=== PATIENT | male | born 1970 | race Caucasian/White ===

== ENCOUNTER 2019-02-15 11:28 | Outpatient (CLI) | payer MEDICAID, SELFPAY ==
[2019-02-15 12:24] LABS: HCT 43.4 % (40.0-50.0); HGB 14.1 g/dL (13.5-17.5); Mean Corp. HGB Concentration 32.5 g/dL (32.0-36.0); Mean Corpuscular Hemoglobin 28.1 pg (27.0-33.0); Mean Corpuscular Volume 86.5 fL (80-95); Platelet Count 288 x1000/uL (130-400); RBC 5.02 m/cumm (4.50-6.00); RBC Distribution Width 14.7 % (11.8-14.1); White Blood Cell Count 9.55 k/cumm (4.4-10.8)
[2019-02-15 13:47] LABS: ALT 54 U/L (12-78); AST 26 U/L (15-37); Albumin 3.4 g/dL (3.4-5.0); Alkaline Phosphatase 113 U/L (46-116); Anion Gap 10.6 mmol/L (3-11); BUN 15 mg/dL (7-18); Bilirubin, Total 0.6 mg/dL (0.2-1.0); CO2 27.4 mmol/L (21.0-32.0); CREATININE 1.12 mg/dL (0.70-1.30); Calcium 8.7 mg/dL (8.5-10.1); Calculated LDL 115 mg/dL; Chloride 107 mmol/L (98-107); Cholesterol 195 mg/dL (50-200); Glucose 108 mg/dL (70-100); HDL Cholesterol 47 mg/dL (40-60); Potassium 4.5 mmol/L (3.5-5.1); Sodium 145 mmol/L (136-145); Triglyceride 165 mg/dL (30-150)
== END 2019-02-15 11:48 ==
PROVIDERS: PCP Family Medicine; Visit Provider Family Medicine
DX: I10 Essential (primary) hypertension (principal)
CPT/HCPCS: 36415; 80053; 80061; 83721; 85027

== ENCOUNTER 2022-07-11 11:16 | Outpatient (CLI) | payer MEDICAID, SELFPAY ==
[2022-07-11 11:31] LABS: Anion Gap 8.2 mmol/L (3-11); BUN 19 mg/dL (7-18); CO2 25.8 mmol/L (21.0-32.0); Calcium 8.9 mg/dL (8.5-10.1); Calculated LDL 126 mg/dL (<100); Chloride 101 mmol/L (98-107); Cholesterol 207 mg/dL (<200); Estimated GFR 91.12 (mL/min/1.73m2); Glucose 132 mg/dL (74-106); HDL Cholesterol 47 mg/dL (40-60); Potassium 4.3 mmol/L (3.5-5.1); Sodium 135 mmol/L (136-145); Triglyceride 174 mg/dL (<150)
[2022-07-11 18:45] LABS: PSA, Screening 1.2 ng/mL (<=3.5)
== END 2022-07-11 11:17 | disposition home or self-care (01) ==
LOC: LBO 11:20
PROVIDERS: PCP Family Medicine; Visit Provider Family Medicine
DX: E87.1 Hypo-osmolality and hyponatremia (principal); Z12.5 Encounter for screening for malignant neoplasm of prostate; E78.5 Hyperlipidemia, unspecified
CPT/HCPCS: 36415; 80048; 80061; 84153

== ENCOUNTER 2023-08-17 08:54 | Emergency (ER) | payer MEDICAID, SELFPAY ==
[2023-08-17 09:01] VITALS: BP 178/70; PULSE 89; RESP 18; TEMP 37; O2SAT 95
[2023-08-17 09:10] VITALS: RESP 20
--- NOTE | 2023-08-17 09:19 | ED.GENADUL_ITS ---
Discharge Plan Disposition Patient Disposition: Home Discharge Details Clinical Impression: URI (upper respiratory infection) Primary Care Provider: Armando Altman ED Provider: Mxa Quick Home Meds and New Rx's Prescriptions: Continued multivitamin combination no.56 Tablet,Chewable 1 tab PO DAILY lisinopril 30 mg tablet 30 mg PO DAILY Qty: 90 2RF chlorthalidone 25 mg tablet 25 mg PO DAILY Qty: 90 3RF Patient Comments: Probably, but unsure. venlafaxine 150 mg capsule,extended release 24hr 150 mg PO DAILY Qty: 90 3RF Discharge Instructions Additional Instructions: You were seen in the emergency department for your cough. As we discussed you will receive a call back if your viral swab returns positive. Please follow-up with your primary care provider this week. Please return to the emergency department, as we discussed, if you develop worsening shortness of breath difficulty breathing cannot eat or drink or have any other concerns. Discharge Data Discharge Date/Time-TO BE ENTERED AT DEPARTURE: 08/17/23 09:50 HPI General Date/Time Provider Initiated Documentation: 08/17/23 09:01 . HPI Narrative: MDM This is an overall very well-appearing normothermic and not tachycardic 52-year-old male with obesity recent cough and history and physical most consist ent with viral URI. Patient does have an elevated blood pressure and history of hypertension has not yet taken his home medications. He has good range of motion in his neck so not concern for retropharyngeal abscess. Uvula is midline so doubt REAL ESTATE ANALYST. No fevers nor abnormal lung sounds nor hypoxia so doubt pneumonia. No chest pain to suggest ACS. No significant shortness of breath nor lower extremity edema to suggest acute CHF. I considered PE however the patient denies shortness of breath and chest pains so I did not send a D-dimer. No pain out of proportion to suggest necrotizing soft tissue infection. Given no fevers and low Centor score I did not swab for strep pharyngitis. Viral will send PCR for COVID RSV and influenza and call if these are positive. Patient and I discussed follow-up with his primary care provider later this week. We also discussed return to the emergency department if he did not urinate at least once every 8 hours while awake if he developed fevers syncope or difficulty breathing. He understood his return indications and was discharged with an empiric trial of expectant outpatient management. Patient and I discussed that he may have a viral URI or bronchitis. I advised that if his symptoms worsens or does not improve that he should return to the emergency department for reassessment if he could not get into his primary care provider later this week. 3 PM Blood pressure improved without intervention in the emergency department. Respiratory viral swab negative for COVID, influenza, and RSV. Chronic conditions affecting the care of the patient: Hypertension elevated BMI History obtained from an outside historian: N/A External record review: No [facility] EMR records Medications: N/A Social determinants of health affecting disposition: N/A Management discussed with: N/A Treatment/interventions considered: Chest x-ray but deferred Response to therapies provided: N/A HPI This is a 52-year-old male with a history of hypertension and elevated BMI arrived to the emergency department via private vehicle in the setting of cough for the past 3 days. Patient reports that he is intermittently had a productive cough which he says is thick and yellow. He generally feels unwell. He is occasionally had some shortness of breath secondary to coughing. He works in maintenance. He swabbed himself at home and was negative for COVID. He has not yet taken his home antihypertensive medications. He denies routine tobacco, ethanol, and illicits. He has no history of asthma. He has not been nauseous or vomiting. He has been urinating per usual. No recent syncope. No dysuria nor frequency. No abdominal pain. Intermittent sore throat. Exam General: Well-appearing in no acute distress speaking in complete sentences. Head: Normocephalic, atraumatic. Eye: Extraocular eye movements intact. No conjunctival injection. No scleral icterus. Ear, nose, mouth, throat: Grossly normal inspection. Normal voice, handling secretions normally. No significant posterior oropharynx erythema. Uvula midline. No tonsillar exudates. Neck: Trachea midline. Cardiovascular: Well-perfused distal extremities. Regular rate and rhythm Respiratory: Nonlabored respiration. Clear lungs bilaterally Gastrointestinal: Nondistended abdomen. Musculoskeletal: No significant lower extremity pitting edema. Moving all 4 extremities spontaneously. Skin: Normal for age and race, grossly normal temperature and turgor. No acute rash. Neurologic: Alert and appropriate, no apparent acute deficits. Psychiatric: Mood and manner are appropriate. Grooming and personal hygiene are appropriate. Related Data Home Medications Medication Instructions Recorded Confirmed multivitamin combination no.56 1 tab PO DAILY 06/05/21 08/17/23 venlafaxine 150 mg 150 mg PO DAILY #90 caps 06/16/22 08/17/23 capsule,extended release 24 hr chlorthalidone 25 mg tablet 25 mg PO DAILY #90 tabs 02/02/23 08/17/23 lisinopril 30 mg tablet 30 mg PO DAILY #90 tabs 02/02/23 08/17/23 Previous Rx's Medication Instructions Recorded venlafaxine 150 mg 150 mg PO DAILY #90 caps 06/16/22 capsule,extended release 24 hr chlorthalidone 25 mg tablet 25 mg PO DAILY #90 tabs 02/02/23 lisinopril 30 mg tablet 30 mg PO DAILY #90 tabs 02/02/23 Allergies Allergy/AdvReac Type Severity Reaction Status Date / Time ciprofloxacin [From Cipro] Allergy Severe HIVES, GI Verified 02/02/23 15:51 UPSET General Stated Complaint: GenMedical ROBBIN: 4 PFSH All Active Problems (Updated 08/17/23 @ 09:36 by Max Quick MD) URI (upper respiratory infection) (Acute) URI (upper respiratory infection) (Acute) Screening for colon cancer (Acute) Depressive disorder (Acute 03/04/11) History of umbilical hernia repair (Acute) Hyperlipidemia (Acute) Pulmonary hypertension, unspecified (Acute) Urination frequency (Acute) and urgency; normal IVP; normal PSA Morbid obesity (Acute) Umbilical hernia (Acute 07/16/03) repair-Gladys Morbid obesity with BMI of 45.0-49.9, adult (Chronic) GERD (gastroesophageal reflux disease) (Chronic) Anxiety (Chronic) Chest pain (Acute 07/17/14) Hyperlipidemia (Chronic) Bilateral lower extremity edema (Chronic) H/O surgical procedure (Chronic) a. umbilical hernia repair 2003 Depression (Chronic) Polyuria (Chronic) Family history of coronary artery disease (Chronic) HTN (hypertension) (Chronic) Family History (Updated 06/05/21 @ 15:28 by Xiomy Solomon) Mother Depression Diabetes High cholesterol Father Alcohol use disorder Cancer Heart disease Hypertension Sister No problems noted. Sister No problems noted. Son No problems noted. Daughter No problems noted. Social History (Updated 06/05/21 @ 15:26 by Xiomy Solomon) Smoking/Tobacco Use Status: Former Tobacco Use tobacco type: cigarettes and smokeless tobacco Quit Date: 08/17/06 Smokeless tobacco user: chewing tobacco Second Hand Exposure: Yes Smoking risk assessment performed?: Yes Alcohol Intake: never Drug use: Never Substance use type: does not use Caregiver/Support person: No Household members: spouse Housing: house Pets and animals: Yes Pets and animals: dog(s) and farm animals Sexually active: Yes Do you think of yourself as: straight/heterosexual Current gender identity: male What is your relationship status?: How often do you talk on the phone with friends or family?: three or more times per week How often do you get together with friends or relatives?: twice per week Do you belong to any clubs or organized social groups?: no Panel score (0-1 are the most socially isolated patients): 2 What type of physical activity do you participate in: walking Duration: 60-90 minutes/day Frequency: 3-4 times per week Nereida/Presybeterian: No preference Special nereida needs: No Seatbelt use: always Helmet use: No Drive intox or ride w/intox port cdl a driver: No Course Vital Signs Vital signs: Vital Signs Temperature 37.0 C 08/17/23 09:01 Pulse 89 08/17/23 09:01 Respiratory Rate 18 08/17/23 09:01 Blood Pressure 178/70 H 08/17/23 09:01 Pulse Oximetry 95 08/17/23 09:01 Temperature 37.0 C 08/17/23 09:01 Pulse 89 08/17/23 09:01 Respiratory Rate 20 08/17/23 09:10 Respiratory Effort Normal, Non-Labored 08/17/23 09:10 Respiratory Depth Normal 08/17/23 09:10 Respiratory Pattern Normal 08/17/23 09:10 Blood Pressure 178/70 H 08/17/23 09:01 Pulse Oximetry 95 08/17/23 09:01 Oxygen Delivery Method Room Air 08/17/23 09:01 Oxygen Flow Rate 0 08/17/23 09:01
[2023-08-17 09:50] VITALS: BP 138/83; PULSE 87; RESP 18; O2SAT 95
[2023-08-17 10:32] LABS: COVID-19 PCR Negative (Negative); Influenza A PCR Negative (Negative); Influenza B PCR Negative (Negative); RSV PCR Negative (Negative)
[2023-08-17 10:42] LABS: Source Nasopharynx
== END 2023-08-17 09:50 | disposition home or self-care (01) ==
PROVIDERS: Emergency Provider Emergency Medicine; PCP Family Medicine
DX: J06.9 Acute upper respiratory infection, unspecified (principal); I10 Essential (primary) hypertension; Z11.52 Encounter for screening for COVID-19; Z87.891 Personal history of nicotine dependence
CPT/HCPCS: 87635; 87637; 99283; 99282

== ENCOUNTER 2024-04-24 08:25 | Emergency (ER) | payer MEDICAID, SELFPAY ==
[2024-04-24] VITALS (33 sets, daily range): BP systolic 160–192; BP diastolic 68–92; PULSE 62–92; RESP 12–23; TEMP 36.4–36.8; O2SAT 93–97
--- NOTE | 2024-04-24 08:49 | W.ED.GENAD ---
Discharge Plan Disposition Patient Disposition: Transfer-Acute Inpatient Care Specific Acute Inpt Facility: [facility] Condition: Stable Discharge Details Chief Complaint: GenMedical Clinical Impression: Thyroid mass, Multiple pulmonary nodules Primary Care Provider: Armando Altman ED Provider: Raji Shea Home Meds and New Rx's Prescriptions: No Action multivitamin combination no.56 Tablet,Chewable 1 tab PO DAILY venlafaxine 150 mg capsule,extended release 24hr 150 mg PO DAILY Qty: 90 3RF chlorthalidone 25 mg tablet 25 mg PO DAILY Qty: 90 3RF Patient Comments: Probably, but unsure. lisinopril 30 mg tablet 30 mg PO DAILY Qty: 90 2RF Discharge Instructions Instructions: Multiple pulmonary nodules Additional Instructions: You are being transferred to [facility] to be evaluated by upholsterer limousine and hearse. You have been found to have a large thyroid mass. You have also been found to have multiple lung nodules. All of these conditions need to be urgently evaluated and followed up on for further treatment. HPI General Date/Time Provider Initiated Documentation: 04/24/24 08:26. HPI Narrative: 53-year-old male presents with growing painful mass to left side of neck over the last several days, denies fevers chills nausea vomiting abdominal pain or chest pain. Patient does endorse that the swelling in his neck is making it more difficult to swallow and breathe this morning. Denies history of tobacco use. Denies recent travel. Denies recent trauma. Denies recent dental infection or current dental symptoms Related Data Home Medications ?Medication ?Instructions ?Recorded ?Confirmed multivitamin combination no.56 1 tab PO DAILY 06/05/21 04/24/24 venlafaxine 150 mg 150 mg PO DAILY #90 caps 08/18/23 04/24/24 capsule,extended release 24 hr chlorthalidone 25 mg tablet 25 mg PO DAILY #90 tabs 02/08/24 04/24/24 lisinopril 30 mg tablet 30 mg PO DAILY #90 tabs 02/08/24 04/24/24 Previous Rx's ?Medication ?Instructions ?Recorded venlafaxine 150 mg 150 mg PO DAILY #90 caps 08/18/23 capsule,extended release 24 hr chlorthalidone 25 mg tablet 25 mg PO DAILY #90 tabs 02/08/24 lisinopril 30 mg tablet 30 mg PO DAILY #90 tabs 02/08/24 Allergies Allergy/AdvReac Type Severity Reaction Status Date / Time ciprofloxacin (From Cipro) Allergy Severe HIVES, GI Verified 04/24/24 09:02 UPSET General Stated Complaint: GenMedical ROBBIN: 3 Exam Narrative Exam Narrative: Mildly uncomfortable appearing Moist mucous membranes tolerate secretions normal voice no stridor Soft submental submandibular and sublingual space, large area of firm induration left lateral neck extending from angle of mandible to clavicle, no crepitus no fluctuance no purulence no erythema Lungs clear bilaterally no wheezes rales or rhonchi no tachypnea no retractions no cyanosis Normal heart sounds no murmurs rubs or gallops Moving all extremities without deficit Ambulatory without assistance Course Vital Signs Vital signs: Vital Signs Temperature 36.4 C 04/24/24 08:29 Pulse 92 H 04/24/24 08:29 Respiratory Rate 20 04/24/24 08:29 Blood Pressure 185/92 H 04/24/24 08:29 Pulse Oximetry 97 04/24/24 08:29 Temperature 36.4 C 04/24/24 08:29 Pulse 92 H 04/24/24 08:29 Respiratory Rate 20 04/24/24 08:29 Blood Pressure 185/92 H 04/24/24 08:29 Blood Pressure Position Sitting 04/24/24 08:29 Pulse Oximetry 97 04/24/24 08:29 Oxygen Delivery Method Room Air 04/24/24 08:29 Oxygen Flow Rate 0 04/24/24 08:29 Medical Decision Making 53-year-old male presents with progressive swelling and discomfort to left lateral neck over the last several days, afebrile nontoxic however does appear mildly uncomfortable, no respiratory distress no hypoxia no tachypnea patient is hemodynamically stable, no stridor, patient is tolerating secretions has a normal voice, large area of induration extending from angle of left mandible to level of clavicle involving left lateral neck no erythema no fluctuance no crepitus, trachea is midline patient's lungs are clear; concern for malignancy of neck versus deep space infection of neck no evidence of José Miguel's angina at this time given soft submental sublingual and submandibular space muscles consider septic thrombophlebitis versus lymphadenopathy lower suspicion for arterial aneurysm or dissection must also consider extension from thoracic pathology such as malignancy at apex of lung. No unilateral edema to suggest subclavian vascular involvement. Will obtain CT neck CT chest with contrast, will start empiric Unasyn dexamethasone Toradol, close reassessment disposition pending reassessment and results. Patient is protecting airway currently will continue to reassess and intervene as necessary. Patient is on lisinopril however this does not appear to be angioedema as the oropharyngeal mucosa are uninvolved 10: 33 evidence of left thyroid lobe mass as well as multiple pulmonary nodules concerning for metastatic disease. High clinical suspicion for malignancy. Lower suspicion for deep space infection of neck. Patient feeling symptomatically better after dexamethasone. Tongue secretions normal voice no stridor no respiratory distress. I have reached out to surgical oncology ENT at [facility] for discussion of possible transfer versus close follow-up, patient does have a follow-up appointment with his primary care on Thursday. 11: 59 per transfer center ENT consulting resident deferred the consult to endocrinology. I was able to speak with health sciences manager fellow with Dr. Carreon who agrees with my assessment that this patient needs consultation with a surgical service. Endocrinology is happy to follow-up with the patient as an outpatient as needed. I have expressed to the transfer center that I need to speak with a surgical service whether it be ENT or general surgery with regards to this patient given his acute upper airway symptomatology and potential for decompensation. Patient remains hemodynamically stable airway intact feeling better after dexamethasone 1: 25 was able to speak with ENT resident who consulted with her attending who would like patient transferred ED to ED for evaluation. Patient remains hemodynamically stable airway is intact normal voice tolerating secretions no stridor no respiratory distress no hypoxia no tachypnea. Patient amenable to transfer. Quality:SDOH Health Related Social Needs: No Data to Display PFSH All Active Problems (Updated 04/24/24 @ 13:27 by Raji Shea MD) Multiple pulmonary nodules (Acute) Thyroid mass (Acute) Bilateral otitis media (Acute) URI (upper respiratory infection) (Acute) Screening for colon cancer (Acute) Depressive disorder (Acute 03/04/11) History of umbilical hernia repair (Acute) Hyperlipidemia (Acute) Pulmonary hypertension, unspecified (Acute) Urination frequency (Acute) and urgency; normal IVP; normal PSA Morbid obesity (Acute) Umbilical hernia (Acute 07/16/03) repair-Gladys Morbid obesity with BMI of 45.0-49.9, adult (Chronic) GERD (gastroesophageal reflux disease) (Chronic) Anxiety (Chronic) Chest pain (Acute 07/17/14) Hyperlipidemia (Chronic) Bilateral lower extremity edema (Chronic) H/O surgical procedure (Chronic) a. umbilical hernia repair 2003 Depression (Chronic) Polyuria (Chronic) Family history of coronary artery disease (Chronic) HTN (hypertension) (Chronic) Family History (Updated 06/05/21 @ 15:28 by Xiomy Solomon) Mother Depression Diabetes High cholesterol Father Alcohol use disorder Cancer Heart disease Hypertension Sister No problems noted. Sister No problems noted. Son No problems noted. Daughter No problems noted. Social History (Updated 06/05/21 @ 15:26 by Xiomy Solomon) Smoking/Tobacco Use Status: Former Tobacco Use tobacco type: cigarettes and smokeless tobacco Quit Date: 08/17/06 Smokeless tobacco user: chewing tobacco Second Hand Exposure: Yes Smoking risk assessment performed?: Yes Alcohol Intake: never Drug use: Never Substance use type: does not use Caregiver/Support person: No Household members: spouse Housing: house Pets and animals: Yes Pets and animals: dog(s) and farm animals Sexually active: Yes Do you think of yourself as: straight/heterosexual Current gender identity: male What is your relationship status?: How often do you talk on the phone with friends or family?: three or more times per week How often do you get together with friends or relatives?: twice per week Do you belong to any clubs or organized social groups?: no Panel score (0-1 are the most socially isolated patients): 2 What type of physical activity do you participate in: walking Duration: 60-90 minutes/day Frequency: 3-4 times per week Nereida/Evangelical: No preference Special nereida needs: No Seatbelt use: always Helmet use: No Drive intox or ride w/intox chassis driver: No Do you feel safe at home: Yes Do you feel safe in your relationship?: Yes
[2024-04-24 08:56] LABS: Abs Immature Grans 0.03 10^3/uL (0.0-0.06); Absolute Basophil Count 0.08 10^3/uL (0.0-0.2); Absolute Lymphocyte Count 1.81 10^3/uL (1.2-3.4); Absolute Monocyte Count 0.49 10^3/uL (0.1-0.8); Absolute Neutrophil Count 5.22 10^3/uL (1.2-6.7); Eosinophils % 1.3 %; HCT 43.7 % (40.0-50.0); HGB 14.6 g/dL (13.5-17.5); Immature Grans % 0.4 %; Lymphocytes % 23.4 %; MCH 28.1 pg (27.0-33.0); MCHC 33.4 % (32.0-36.0); MCV 84 fL (80-95); MPV 8.6 fL (8.0-11.0); Monocytes % 6.3 %; Neutrophils % 67.6 %; Platelet Count 313 10^3/uL (130-400); RDW 13.2 % (11.8-14.1); WBC 7.73 10^3/uL (4.4-10.8)
[2024-04-24] MEDS: Omnipaque 350 MG/ML 100 ML BTL IJ (09:06)
[2024-04-24] MEDS: Normal Saline - Diluent 50 ML VIAL IJ (09:08)
[2024-04-24 09:09] LABS: ALT 35 U/L (16-63); AST 17 U/L (15-37); Albumin 3.4 g/dL (3.4-5.0); Alkaline Phosphatase 116 U/L (46-116); Anion Gap 10.3 mmol/L (3-11); BUN 14 mg/dL (7-18); Bilirubin, Total 0.83 mg/dL (0.2-1.0); CO2 26.7 mmol/L (21.0-32.0); Calcium 9.1 mg/dL (8.5-10.1); Chloride 95 mmol/L (98-107); Glucose 281 mg/dL (74-106); Potassium 3.9 mmol/L (3.5-5.1); Sodium 132 mmol/L (136-145); Total Protein 7.9 g/dL (6.4-8.2)
[2024-04-24 09:11] LABS: PTT Activated 29.2 sec (23.6-32.8); Prothrombin Time 10.2 sec (9.1-11.1)
--- NOTE | 2024-04-24 09:12 | DI.CT_ITS ---
Exam(s) CT NECK CHEST W EXAM: CT NECK CHEST W CLINICAL HISTORY: L sided neck mass; malignancy? v infection? TECHNIQUE: Imaging Protocol: Axial computed tomography images with coronal and sagittal reformatted images were created and reviewed CONTRAST MATERIAL: Intravenous: Omnipaque 350Contrast volume:100 mL. COMPARISON: CT ABD PELVIS WITH CONTRAST from 10/05/2009 FINDINGS: Orbits and orbital soft tissues: Within normal limits. Visualized paranasal sinuses: There is mild mucosal thickening in the maxillary sinuses. The remain ing visualized paranasal sinuses are clear. No fluid levels are seen. The mastoid air cells are piedad ar. Nasopharynx: Within normal limits. Oropharynx: Within normal limits. Hypopharynx: Within normal limits. Larynx: Within normal limits. Retropharyngeal space: Within normal limits. Parotids/submandibular: Within normal limits. Thyroid gland: The left lobe of the thyroid gland is enlarged. There is a there is a 5.6 x 4.6 x 7 cm hypodense mass in the left lobe of the thyroid gland. It displaces the trachea to the right. It extends into the superior mediastinum. The right thyroid gland is unremarkable. Lymphadenopathy: There is scattered lymph nodes seen along the level one to level three all measurin g less than 8 mm in short axis diameter which are physiologic in nature. Trachea: The trachea is patent. Bones: No aggressive osseous lesions are identified. Carotids/Jugular: Within normal limits. Soft tissues: Within normal limits. Tracheobronchial tree: Patent where visualized. Pulmonary parenchyma: There are numerous pulmonary nodules present. They measure up to 1.6 cm in siz e. No focal consolidations are present. Mediastinum and Nimco: No dominant adenopathy or fluid collection. The esophagus is unremarkable. Thyroid gland: Unremarkable. Pleura: No effusion or pneumothorax. Heart: The heart is not dilated. No coronary artery calcifications are seen. No pericardial effusion. Aorta: Thoracic aorta non-dilated. Pulmonary arteries: Due to the bolus timing, pulmonary artery evaluation is suboptimal for evaluation of pulmonary emboli. Upper abdomen: There is diffuse decreased attenuation of the liver consistent with fatty infiltratio n. Lymph nodes: Within normal limits. Bones: Within normal limits for the patient's age. No aggressive osseous lesions are present. Soft tissues: Unremarkable. IMPRESSION: 1. There are numerous pulmonary nodules present. The largest measures 1.6 cm. Primary diagnostic co ncern is for metastatic disease. Inflammatory/infectious nodules cannot be entirely excluded. 2. 5.6 x 4.6 x 7 cm hypodense mass in the left lobe of the thyroid gland. Thyroid ultrasound is dahlia mmended. Due to its size and heterogeneity, biopsy should be considered. ENT consult is recommended . 3. No evidence of cervical or mediastinal adenopathy. 4. Findings were discussed with Dr. Shea at 9:52 a.m. on 04/24/2024. RADIATION DOSE DELIVERED: 1,172.54mGy.cm Total DLP DATA REPOSITORY: All CT scans at this facility are submitted to the National Radiology Data Registry (NRDR) Dose Index Registry (DIR) with the [employer] ([employer]). RADIATION OPTIMIZATION: All CT scans at this facility use at least one of these dose optimization te chniques: automated exposure control; mA and/or kV adjustment per patient size (includes targeted exa ms where dose is matched to clinical indication); or iterative reconstruction.
[2024-04-24] MEDS: AMPICILLIN/SULBACTAM 3 GM in Normal Saline 100 ML IVPB (09:29)
[2024-04-24] MEDS: Normal Saline 500 ML 1000 ML IV (09:30)
[2024-04-24] MEDS: Dexamethasone 10 MG/ML VIAL IVP (09:30)
[2024-04-24] MEDS: Ketorolac 15 MG/ML VIAL IVP (09:30)
== END 2024-04-24 14:11 | disposition short-term general hospital (02) ==
PROVIDERS: Emergency Provider Emergency Medicine; PCP Family Medicine
DX: R91.8 Other nonspecific abnormal finding of lung field (principal); E07.9 Disorder of thyroid, unspecified; I10 Essential (primary) hypertension; E78.5 Hyperlipidemia, unspecified; Z87.891 Personal history of nicotine dependence
CPT/HCPCS: 70491; 80053; 96365; 96375; 99285; 71260; 84443; 85025; 85610; 85730; J0295; J1100; J1885; J3490

== ENCOUNTER 2024-05-16 03:03 | Outpatient (CLI) | payer MEDICAID, SELFPAY ==
[2024-05-16 13:56] LABS: Abs Immature Grans 0.04 10^3/uL (0.0-0.06); Absolute Basophil Count 0.08 10^3/uL (0.0-0.2); Absolute Eosinophil Count 0.25 10^3/uL (0.0-0.7); Absolute Lymphocyte Count 2.19 10^3/uL (1.2-3.4); Absolute Monocyte Count 0.81 10^3/uL (0.1-0.8); Absolute Neutrophil Count 6.67 10^3/uL (1.2-6.7); Basophils % 0.8 %; Eosinophils % 2.5 %; HCT 47.8 % (40.0-50.0); HGB 15.7 g/dL (13.5-17.5); Immature Grans % 0.4 %; Lymphocytes % 21.8 %; MCH 27.2 pg (27.0-33.0); MCHC 32.8 % (32.0-36.0); MCV 83 fL (80-95); MPV 8.6 fL (8.0-11.0); Monocytes % 8.1 %; Neutrophils % 66.4 %; Platelet Count 271 10^3/uL (130-400); RBC 5.77 10^6/uL (4.36-5.78); RDW 13.3 % (11.8-14.1); RDW-SD 39.8 fL; WBC 10.04 10^3/uL (4.4-10.8)
[2024-05-16 13:58] LABS: Bilirubin Negative (Negative); Blood Negative (Negative); Clarity Clear (Clear); Glucose Negative (Negative); Ketones 15 mg/dL (Negative); Leukocyte Esterase Negative (Negative); Nitrite Negative (Negative); Urobilinogen 0.2 mg/dL (Up to 0.2)
[2024-05-16 14:21] LABS: ALT 48 U/L (16-63); AST 24 U/L (15-37); Albumin 3.7 g/dL (3.4-5.0); Alkaline Phosphatase 123 U/L (46-116); Anion Gap 9.8 mmol/L (3-11); BUN 17 mg/dL (7-18); Bilirubin, Total 0.97 mg/dL (0.2-1.0); CO2 28.2 mmol/L (21.0-32.0); CREATININE 1.1 mg/dL (0.70-1.30); Calcium 9.7 mg/dL (8.5-10.1); Chloride 96 mmol/L (98-107); Estimated GFR 80.27 (mL/min/1.73m2); FREE T4 0.97 ng/dL (0.76-1.46); Glucose 170 mg/dL (74-106); Magnesium 2.1 mg/dL (1.8-2.4); Potassium 3.5 mmol/L (3.5-5.1); Sodium 134 mmol/L (136-145); Total Protein 8.5 g/dL (6.4-8.2)
== END 2024-05-16 03:04 | disposition home or self-care (01) ==
LOC: LBO 03:03
PROVIDERS: PCP Family Medicine; Visit Provider Internal Medicine Medical Oncology
DX: Z23 Encounter for immunization (principal); E11.9 Type 2 diabetes mellitus without complications; E07.9 Disorder of thyroid, unspecified; E66.01 Morbid (severe) obesity due to excess calories
CPT/HCPCS: 36415; 80053; 81003; 83735; 84439; 84443; 85025

== ENCOUNTER 2024-06-13 02:07 | Outpatient (CLI) | payer MEDICAID, SELFPAY ==
[2024-06-13 08:04] LABS: Abs Immature Grans 0.03 10^3/uL (0.0-0.06); Absolute Eosinophil Count 0.23 10^3/uL (0.0-0.7); Absolute Lymphocyte Count 1.83 10^3/uL (1.2-3.4); Absolute Monocyte Count 0.58 10^3/uL (0.1-0.8); Absolute Neutrophil Count 5.07 10^3/uL (1.2-6.7); Basophils % 1.3 %; Eosinophils % 2.9 %; HCT 48.7 % (40.0-50.0); HGB 16.3 g/dL (13.5-17.5); Immature Grans % 0.4 %; Lymphocytes % 23.3 %; MCH 27.6 pg (27.0-33.0); MCHC 33.5 % (32.0-36.0); MCV 82 fL (80-95); MPV 9.2 fL (8.0-11.0); Monocytes % 7.4 %; Neutrophils % 64.7 %; Platelet Count 229 10^3/uL (130-400); RBC 5.91 10^6/uL (4.36-5.78); RDW 15.1 % (11.8-14.1); RDW-SD 43.6 fL; WBC 7.84 10^3/uL (4.4-10.8)
[2024-06-13 08:06] LABS: Bilirubin Negative (Negative); Blood Negative (Negative); Clarity Clear (Clear); Glucose Negative (Negative); Ketones Trace mg/dL (Negative); Leukocyte Esterase Negative (Negative); Nitrite Negative (Negative); Specific Gravity 1.015 (1.005-1.025); pH 7.5 (5-8)
[2024-06-13 08:43] LABS: ALT 57 U/L (16-63); AST 29 U/L (15-37); Albumin 3.8 g/dL (3.4-5.0); Alkaline Phosphatase 119 U/L (46-116); Anion Gap 11.5 mmol/L (3-11); BUN 17 mg/dL (7-18); Bilirubin, Total 0.84 mg/dL (0.2-1.0); CO2 27.5 mmol/L (21.0-32.0); CREATININE 1.2 mg/dL (0.70-1.30); Calcium 9.9 mg/dL (8.5-10.1); Chloride 101 mmol/L (98-107); Estimated GFR 72.31 (mL/min/1.73m2); FREE T4 0.94 ng/dL (0.76-1.46); Glucose 167 mg/dL (74-106); Potassium 3.8 mmol/L (3.5-5.1); Sodium 140 mmol/L (136-145); TSH 4.55 uIU/mL (0.36-3.74); Total Protein 8.5 g/dL (6.4-8.2)
== END 2024-06-13 02:08 | disposition home or self-care (01) ==
LOC: LBO 02:07
PROVIDERS: PCP Family Medicine; Visit Provider Internal Medicine Medical Oncology
DX: C73 Malignant neoplasm of thyroid gland (principal); C78.01 Secondary malignant neoplasm of right lung; C78.02 Secondary malignant neoplasm of left lung; Z79.899 Other long term (current) drug therapy
CPT/HCPCS: 36415; 80053; 81003; 83735; 84439; 84443; 85025

== ENCOUNTER 2024-06-13 08:12 | Outpatient (CLI) | payer MEDICAID, SELFPAY ==
--- NOTE | 2024-06-13 08:15 | RT.EKG_ITS ---
APPROVED REPORT Exam: Resting ECG Reason for Exam: High Risk Medication Use Patient Location: O HR:86 bpm ECG Measurements Heart Rate 86 AXIS NJ 140 P 62 QRSd 96 QRS 24 QT 371 T 94 QTc 444 Conclusion Sinus rhythm...normal P axis, V-rate 50- 99 Borderline low voltage, extremity leads...all extremity leads <0.6mV Otherwise normal ECG
== END 2024-06-13 08:13 | disposition home or self-care (01) ==
PROVIDERS: PCP Family Medicine; Visit Provider Internal Medicine Medical Oncology
DX: Z79.899 Other long term (current) drug therapy (principal)
CPT/HCPCS: 93005; 93010

== ENCOUNTER 2024-06-27 01:22 | Outpatient (CLI) | payer MEDICAID, SELFPAY ==
--- NOTE | 2024-06-27 | DI.CT_ITS ---
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 Computer aided detection (CAD) was utilized. CONTRAST MATERIAL: Intravenous: Omnipaque 350 Contrast volume:100 mL Oral: no COMPARISON: CT CT NECK CHEST W from 04/24/2024 FINDINGS: Neck: Parotids/submandibular: Normal. Thyroid gland: Interval decrease in size of previously noted left thyroid lesion, now measuring 4.0 x 3.4 by 5.3 cm compared with 5.6 by 4.6 x 7 cm on the prior exam. Right lobe normal. Lymphadenopathy: There are scattered lymph nodes seen along the level one to level three all measuri ng less than 8 mm in short axis diameter which are physiologic in nature. Carotids/Jugular: Within normal limits. Soft tissues: The floor the mouth is unremarkable. The epiglottis and vocal cords are within normal limits. Bones: No fracture. Hemangioma C6. Degenerative changes. No suspicious lesions. Chest: Mildly limited due to respiratory motion. Tracheobronchial tree: Patent where visualized. Mediastinum and Nimco: No dominant adenopathy or fluid collection. Pulmonary parenchyma: Significant interval decrease in nodule previously noted at the left upper lobe , now measuring 3 x 6 millimeters compared to 1.4 cm on the prior exam. Other tiny nodules seen, jeff suring less than 5 millimeters, also significantly decreased in size. Pleura: No effusion or pneumothorax. Heart/Aorta: Thoracic aorta non-dilated. The heart is not dilated. No coronary artery calcifications are seen. Pulmonary arteries: No evidence of emboli. Bones: No fracture. hemangioma noted in T9. No suspicious lesions. Flowing osteophytes. ABDOMEN: Streak artifact related to patient arm position. No gross abnormality identified. IMPRESSION: Significant interval decrease in size of left thyroid mass. Significant interval decrease in metastatic pulmonary lesions. No new abnormalities. RADIATION DOSE DELIVERED: 1,121.78mGy.cm Total DLP DATA REPOSITORY: All CT scans at this facility are submitted to the National Radiology Data Registry (NRDR) Dose Index Registry (DIR) with the [employer] (ACR). RADIATION OPTIMIZATION: All CT scans at this facility use at least one of these dose optimization te chniques: automated exposure control; mA and/or kV adjustment per patient size (includes targeted exa ms where dose is matched to clinical indication); or iterative reconstruction.
[2024-06-27] MEDS: Omnipaque 350 MG/ML 100 ML BTL IJ (09:36)
[2024-06-27] MEDS: Normal Saline - Diluent 50 ML VIAL IJ (09:36)
== END 2024-06-27 01:42 ==
LOC: DI 01:23
PROVIDERS: PCP Family Medicine; Visit Provider Internal Medicine Medical Oncology
DX: C73 Malignant neoplasm of thyroid gland (principal); C78.01 Secondary malignant neoplasm of right lung; C78.02 Secondary malignant neoplasm of left lung
CPT/HCPCS: 70491; 71260; J3490

== ENCOUNTER 2024-07-04 03:07 | Outpatient (CLI) | payer MEDICAID, SELFPAY ==
[2024-07-04 08:02] LABS: Abs Immature Grans 0.04 10^3/uL (0.0-0.06); Absolute Basophil Count 0.09 10^3/uL (0.0-0.2); Absolute Eosinophil Count 0.29 10^3/uL (0.0-0.7); Absolute Lymphocyte Count 2.48 10^3/uL (1.2-3.4); Absolute Neutrophil Count 7.18 10^3/uL (1.2-6.7); Basophils % 0.8 %; Eosinophils % 2.7 %; HCT 49.9 % (40.0-50.0); HGB 16.7 g/dL (13.5-17.5); Immature Grans % 0.4 %; Lymphocytes % 22.9 %; MCH 28.3 pg (27.0-33.0); MCHC 33.5 % (32.0-36.0); MCV 85 fL (80-95); MPV 8.6 fL (8.0-11.0); Monocytes % 6.8 %; Neutrophils % 66.4 %; Platelet Count 284 10^3/uL (130-400); RDW 15.8 % (11.8-14.1); RDW-SD 47.1 fL; WBC 10.81 10^3/uL (4.4-10.8)
[2024-07-04 08:03] LABS: Absolute Monocyte Count 0.74 10^3/uL (0.1-0.8)
[2024-07-04 08:06] LABS: Bilirubin Negative (Negative); Blood Negative (Negative); Clarity Clear (Clear); Glucose Negative (Negative); Ketones Negative (Negative); Leukocyte Esterase Negative (Negative); Nitrite Negative (Negative); Specific Gravity 1.015 (1.005-1.025)
[2024-07-04 08:25] LABS: Albumin 3.7 g/dL (3.4-5.0); Alkaline Phosphatase 109 U/L (46-116); BUN 17 mg/dL (7-18); Bilirubin, Total 0.72 mg/dL (0.2-1.0); CREATININE 1.1 mg/dL (0.70-1.30); Calcium 9.5 mg/dL (8.5-10.1); Chloride 101 mmol/L (98-107); Estimated GFR 80.27 (mL/min/1.73m2); FREE T4 0.85 ng/dL (0.76-1.46); Glucose 180 mg/dL (74-106); Magnesium 2.1 mg/dL (1.8-2.4); Potassium 4.2 mmol/L (3.5-5.1); Sodium 136 mmol/L (136-145); TSH 6.36 uIU/mL (0.36-3.74); Total Protein 8.4 g/dL (6.4-8.2)
[2024-07-04 08:41] LABS: AST 21 U/L (15-37)
[2024-07-04 08:54] LABS: ALT 16 U/L (16-63)
== END 2024-07-04 03:08 | disposition home or self-care (01) ==
LOC: LBO 03:08
PROVIDERS: PCP Family Medicine; Visit Provider Internal Medicine Medical Oncology
DX: C73 Malignant neoplasm of thyroid gland (principal); C78.01 Secondary malignant neoplasm of right lung; C78.02 Secondary malignant neoplasm of left lung; Z79.899 Other long term (current) drug therapy
CPT/HCPCS: 36415; 80053; 81003; 83735; 84439; 84443; 85025

== ENCOUNTER 2024-07-26 01:59 | Outpatient (CLI) | payer MEDICAID, SELFPAY ==
[2024-07-26 08:13] LABS: Abs Immature Grans 0.03 10^3/uL (0.0-0.06); Absolute Basophil Count 0.07 10^3/uL (0.0-0.2); Absolute Eosinophil Count 0.18 10^3/uL (0.0-0.7); Basophils % 0.6 %; Eosinophils % 1.5 %; HCT 48.5 % (40.0-50.0); Immature Grans % 0.2 %; Lymphocytes % 18.1 %; MCH 28.8 pg (27.0-33.0); MCV 87 fL (80-95); MPV 8.4 fL (8.0-11.0); Neutrophils % 73.6 %; Platelet Count 282 10^3/uL (130-400); RBC 5.55 10^6/uL (4.36-5.78); RDW 15.9 % (11.8-14.1); RDW-SD 50.1 fL; WBC 12.07 10^3/uL (4.4-10.8)
[2024-07-26 08:14] LABS: Absolute Lymphocyte Count 2.18 10^3/uL (1.2-3.4); Absolute Monocyte Count 0.72 10^3/uL (0.1-0.8); Absolute Neutrophil Count 8.88 10^3/uL (1.2-6.7)
[2024-07-26 08:18] LABS: Bilirubin Negative (Negative); Blood Trace-intact (Negative); Clarity Clear (Clear); Glucose Negative (Negative); Ketones Negative (Negative); Leukocyte Esterase Negative (Negative); Nitrite Negative (Negative)
[2024-07-26 08:39] LABS: Albumin 3.7 g/dL (3.4-5.0); Alkaline Phosphatase 99 U/L (46-116); Anion Gap 14.9 mmol/L (3-11); BUN 22 mg/dL (7-18); Bilirubin, Total 0.61 mg/dL (0.2-1.0); CO2 20.1 mmol/L (21.0-32.0); Calcium 9.3 mg/dL (8.5-10.1); Chloride 103 mmol/L (98-107); FREE T4 0.99 ng/dL (0.76-1.46); Glucose 145 mg/dL (74-106); Magnesium 2.2 mg/dL (1.8-2.4); Potassium 4.2 mmol/L (3.5-5.1); Sodium 138 mmol/L (136-145); TSH 3.94 uIU/mL (0.36-3.74); Total Protein 8.4 g/dL (6.4-8.2)
[2024-07-26 09:05] LABS: AST 6 U/L (15-37)
[2024-07-26 09:25] LABS: ALT 17 U/L (16-63)
== END 2024-07-26 02:00 | disposition home or self-care (01) ==
LOC: LBO 01:59
PROVIDERS: PCP Family Medicine; Visit Provider Internal Medicine Medical Oncology
DX: C73 Malignant neoplasm of thyroid gland (principal); C78.01 Secondary malignant neoplasm of right lung; C78.02 Secondary malignant neoplasm of left lung; Z79.899 Other long term (current) drug therapy
CPT/HCPCS: 36415; 80053; 81003; 83735; 84439; 84443; 85025

== ENCOUNTER 2024-08-15 13:40 | Outpatient (CLI) | payer MEDICAID, SELFPAY ==
[2024-08-15 08:18] LABS: Abs Immature Grans 0.03 10^3/uL (0.0-0.06); Absolute Basophil Count 0.07 10^3/uL (0.0-0.2); Absolute Eosinophil Count 0.25 10^3/uL (0.0-0.7); Absolute Lymphocyte Count 2.14 10^3/uL (1.2-3.4); Absolute Monocyte Count 0.61 10^3/uL (0.1-0.8); Absolute Neutrophil Count 5.78 10^3/uL (1.2-6.7); Basophils % 0.8 %; Eosinophils % 2.8 %; HCT 47.3 % (40.0-50.0); HGB 15.8 g/dL (13.5-17.5); Immature Grans % 0.3 %; Lymphocytes % 24.1 %; MCHC 33.4 % (32.0-36.0); MCV 87 fL (80-95); MPV 8.6 fL (8.0-11.0); Monocytes % 6.9 %; Neutrophils % 65.1 %; Platelet Count 252 10^3/uL (130-400); RBC 5.44 10^6/uL (4.36-5.78); RDW 14.8 % (11.8-14.1); RDW-SD 47.4 fL; WBC 8.88 10^3/uL (4.4-10.8)
[2024-08-15 08:21] LABS: Bilirubin Negative (Negative); Blood Negative (Negative); Clarity Clear (Clear); Glucose Negative (Negative); Ketones Negative (Negative); Leukocyte Esterase Negative (Negative); Nitrite Negative (Negative); Specific Gravity 1.015 (1.005-1.025); Urobilinogen 0.2 mg/dL (Up to 0.2); pH 6.5 (5-8)
[2024-08-15 08:44] LABS: ALT 38 U/L (16-63); AST 17 U/L (15-37); Albumin 3.7 g/dL (3.4-5.0); Alkaline Phosphatase 95 U/L (46-116); Anion Gap 12.3 mmol/L (3-11); BUN 12 mg/dL (7-18); Bilirubin, Total 0.75 mg/dL (0.2-1.0); CO2 23.7 mmol/L (21.0-32.0); CREATININE 1.1 mg/dL (0.70-1.30); Calcium 9.4 mg/dL (8.5-10.1); Chloride 102 mmol/L (98-107); Estimated GFR 80.27 (mL/min/1.73m2); FREE T4 0.93 ng/dL (0.76-1.46); Glucose 154 mg/dL (74-106); Magnesium 1.9 mg/dL (1.8-2.4); Potassium 4.2 mmol/L (3.5-5.1); Sodium 138 mmol/L (136-145); TSH 3.34 uIU/mL (0.36-3.74)
== END 2024-08-15 13:41 | disposition home or self-care (01) ==
LOC: LBO 13:41
PROVIDERS: PCP Family Medicine; Visit Provider Internal Medicine Medical Oncology
DX: C73 Malignant neoplasm of thyroid gland (principal); C78.01 Secondary malignant neoplasm of right lung; C78.02 Secondary malignant neoplasm of left lung; Z79.899 Other long term (current) drug therapy
CPT/HCPCS: 36415; 80053; 81003; 83735; 84439; 84443; 85025

== ENCOUNTER 2024-09-02 00:21 | Outpatient (CLI) | payer MEDICAID, SELFPAY ==
--- NOTE | 2024-09-02 | DI.CT_ITS ---
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 Computer aided detection (CAD) was utilized. CONTRAST MATERIAL: Intravenous: Omnipaque 350 Contrast volume:100 ml Oral: / no COMPARISON: CT CT NECK CHEST W from 06/27/2024 FINDINGS: Neck: Parotids/submandibular: Normal. Thyroid: Stable size and appearance of low-density nodule in left lobe. Right lobe normal. Lymphadenopathy: There are scattered lymph nodes seen along the level one to level three all measuri ng less than 8 mm in short axis diameter which are likely physiologic in nature. Carotids/Jugular: Within normal limits. Soft tissues: The floor the mouth is unremarkable. The epiglottis and vocal cords are within normal limits. Bones: No fracture. Stable appearance at C7 lesion which may represent hand hemangioma. Other small lucencies appear stable. Chest: Tracheobronchial tree: Patent where visualized. Mediastinum and Nimco: No dominant adenopathy or fluid collection. Pulmonary parenchyma: Decreased size of nodule in the posterior left upper lobe now 4 millimeters. A few other tiny scattered nodules are present which appear unchanged or decreased in size. Comparis on with the previous exam is somewhat difficult due to motion on the prior study. Pleura: No effusion or pneumothorax. Heart/Aorta: Thoracic aorta non-dilated. The heart is not dilated. No coronary artery calcifications are seen. Pulmonary arteries: Suboptimal opacification of pulmonary arteries. No gross evidence of emboli. Bones: No fracture. Stable hemangioma and T9. Flowing osteophytes are again noted. Soft tissues: Mild left gynecomastia. Upper abdomen the: Unremarkable. IMPRESSION: Stable size of left thyroid mass. Decreased size of nodule at left upper lobe. Other scattered small pulmonary nodules are stable or t o have decreased in size. No new abnormalities. RADIATION DOSE DELIVERED: 920.4mGy.cm Total DLP DATA REPOSITORY: All CT scans at this facility are submitted to the National Radiology Data Registry (NRDR) Dose Index Registry (DIR) with the [employer] ([employer]). RADIATION OPTIMIZATION: All CT scans at this facility use at least one of these dose optimization te chniques: automated exposure control; mA and/or kV adjustment per patient size (includes targeted exa ms where dose is matched to clinical indication); or iterative reconstruction.
[2024-09-02] MEDS: Normal Saline - Diluent 50 ML VIAL IJ (14:47)
[2024-09-02] MEDS: Omnipaque 350 MG/ML 100 ML BTL IJ (14:48)
== END 2024-09-02 00:41 ==
LOC: DI 00:21
PROVIDERS: PCP Family Medicine; Visit Provider Internal Medicine Medical Oncology
DX: C73 Malignant neoplasm of thyroid gland (principal); C78.01 Secondary malignant neoplasm of right lung; C78.02 Secondary malignant neoplasm of left lung
CPT/HCPCS: 70491; 71260; J3490

== ENCOUNTER 2024-09-05 03:19 | Outpatient (CLI) | payer MEDICAID, SELFPAY ==
[2024-09-05 07:44] LABS: Abs Immature Grans 0.04 10^3/uL (0.0-0.06); Absolute Basophil Count 0.06 10^3/uL (0.0-0.2); Absolute Eosinophil Count 0.26 10^3/uL (0.0-0.7); Absolute Lymphocyte Count 1.93 10^3/uL (1.2-3.4); Absolute Monocyte Count 0.64 10^3/uL (0.1-0.8); Absolute Neutrophil Count 6.58 10^3/uL (1.2-6.7); Basophils % 0.6 %; Eosinophils % 2.7 %; HCT 48.8 % (40.0-50.0); HGB 16.1 g/dL (13.5-17.5); Immature Grans % 0.4 %; Lymphocytes % 20.3 %; MCH 29.2 pg (27.0-33.0); MCV 89 fL (80-95); MPV 8.9 fL (8.0-11.0); Monocytes % 6.7 %; Neutrophils % 69.3 %; Platelet Count 249 10^3/uL (130-400); RBC 5.51 10^6/uL (4.36-5.78); RDW 14.2 % (11.8-14.1); WBC 9.51 10^3/uL (4.4-10.8)
[2024-09-05 07:58] LABS: Bilirubin Negative (Negative); Blood Negative (Negative); Clarity Clear (Clear); Glucose Negative (Negative); Ketones Negative (Negative); Leukocyte Esterase Negative (Negative); Nitrite Negative (Negative); pH 6.5 (5-8)
[2024-09-05 08:16] LABS: ALT 40 U/L (16-63); AST 21 U/L (15-37); Albumin 3.7 g/dL (3.4-5.0); Alkaline Phosphatase 88 U/L (46-116); Anion Gap 8.6 mmol/L (3-11); BUN 14 mg/dL (7-18); Bilirubin, Total 0.73 mg/dL (0.2-1.0); CO2 27.4 mmol/L (21.0-32.0); CREATININE 1.1 mg/dL (0.70-1.30); Calcium 9.5 mg/dL (8.5-10.1); Chloride 103 mmol/L (98-107); Estimated GFR 80.27 (mL/min/1.73m2); FREE T4 0.84 ng/dL (0.76-1.46); Glucose 144 mg/dL (74-106); Potassium 4.2 mmol/L (3.5-5.1); Sodium 139 mmol/L (136-145); TSH 4.65 uIU/mL (0.36-3.74); Total Protein 8.1 g/dL (6.4-8.2)
== END 2024-09-05 03:20 | disposition home or self-care (01) ==
LOC: LBO 03:19
PROVIDERS: PCP Family Medicine; Visit Provider Internal Medicine Medical Oncology
DX: C73 Malignant neoplasm of thyroid gland (principal); C78.01 Secondary malignant neoplasm of right lung; C78.02 Secondary malignant neoplasm of left lung; Z79.899 Other long term (current) drug therapy
CPT/HCPCS: 36415; 80053; 81003; 83735; 84439; 84443; 85025

== ENCOUNTER 2024-09-26 02:45 | Outpatient (CLI) | payer MEDICAID, SELFPAY ==
[2024-09-26 08:04] LABS: Abs Immature Grans 0.06 10^3/uL (0.0-0.06); Absolute Basophil Count 0.08 10^3/uL (0.0-0.2); Absolute Eosinophil Count 0.23 10^3/uL (0.0-0.7); Absolute Lymphocyte Count 2.17 10^3/uL (1.2-3.4); Absolute Monocyte Count 0.77 10^3/uL (0.1-0.8); Absolute Neutrophil Count 7.55 10^3/uL (1.2-6.7); Basophils % 0.7 %; Eosinophils % 2.1 %; HCT 48.5 % (40.0-50.0); HGB 15.8 g/dL (13.5-17.5); Immature Grans % 0.6 %; MCH 29.3 pg (27.0-33.0); MCHC 32.6 % (32.0-36.0); MCV 90 fL (80-95); Monocytes % 7.1 %; Neutrophils % 69.5 %; Platelet Count 251 10^3/uL (130-400); RBC 5.39 10^6/uL (4.36-5.78); RDW 13.8 % (11.8-14.1); RDW-SD 45.7 fL; WBC 10.86 10^3/uL (4.4-10.8)
[2024-09-26 08:06] LABS: Bilirubin Negative (Negative); Blood Trace-intact (Negative); Clarity Clear (Clear); Glucose Negative (Negative); Ketones Negative (Negative); Leukocyte Esterase Negative (Negative); Nitrite Negative (Negative)
[2024-09-26 08:29] LABS: ALT 36 U/L (16-63); AST 8 U/L (15-37); Albumin 3.4 g/dL (3.4-5.0); Alkaline Phosphatase 92 U/L (46-116); Anion Gap 8.9 mmol/L (3-11); BUN 28 mg/dL (7-18); Bilirubin, Total 0.55 mg/dL (0.2-1.0); CO2 25.1 mmol/L (21.0-32.0); CREATININE 1.1 mg/dL (0.70-1.30); Calcium 9.6 mg/dL (8.5-10.1); Chloride 103 mmol/L (98-107); Estimated GFR 79.77 (mL/min/1.73m2); FREE T4 0.88 ng/dL (0.76-1.46); Glucose 160 mg/dL (74-106); Magnesium 1.9 mg/dL (1.8-2.4); Potassium 4.3 mmol/L (3.5-5.1); Sodium 137 mmol/L (136-145); Total Protein 7.7 g/dL (6.4-8.2)
== END 2024-09-26 02:46 | disposition home or self-care (01) ==
LOC: LBO 02:45
PROVIDERS: PCP Family Medicine; Visit Provider Internal Medicine Medical Oncology
DX: C73 Malignant neoplasm of thyroid gland (principal); C78.01 Secondary malignant neoplasm of right lung; C78.02 Secondary malignant neoplasm of left lung; Z79.899 Other long term (current) drug therapy
CPT/HCPCS: 36415; 80053; 81003; 83735; 84439; 84443; 85025

== ENCOUNTER 2024-10-10 01:17 | Outpatient (CLI) | payer MEDICAID, SELFPAY ==
--- NOTE | 2024-10-10 | DI.CT_ITS ---
Exam(s) CT NECK CHEST W EXAM: CT NECK CHEST W CLINICAL HISTORY: C73,C78.01,C78.02 Thyroid CA, 2nd CA both lungs TECHNIQUE: Imaging Protocol: Axial computed tomography images with coronal and sagittal reformatted images were created and reviewed. Computer aided detection (CAD) was utilized. CONTRAST MATERIAL: Intravenous: Omnipaque 350 Contrast volume:100 ml Oral: / no COMPARISON: CT CT NECK CHEST W from 04/24/[address] NECK CHEST W from 09/02/2024 FINDINGS: Neck: Parotids/submandibular/ normal. thyroid gland: Stable size left thyroid nodule measuring 3.6 x 3.8 by 4.4 cm. The right lobe appears normal. Lymphadenopathy: There are scattered lymph nodes seen along the level one to level three all measuri ng less than 8 mm in short axis diameter which are physiologic in nature. Carotids/Jugular: Within normal limits. Soft tissues: The floor the mouth is unremarkable. The epiglottis and vocal cords are within normal limits. Bones: No fracture. Hemangioma C7. Degenerative changes C5-6. Stable small lucencies in multiple b ones, some of which are degenerative in nature.. Chest: Tracheobronchial tree: Patent where visualized. Mediastinum and Nimco: No dominant adenopathy or fluid collection. Pulmonary parenchyma: No consolidation. Stable size of multiple bilateral pulmonary nodules. No new nodules. Pleura: No effusion or pneumothorax. Heart/Aorta: Thoracic aorta non-dilated. The heart is not dilated. No coronary artery calcifications are seen. Pulmonary arteries: No evidence of emboli. Bones: No fracture. Hemangioma T7. Flowing osteophytes. Soft tissues: Mild left gynecomastia. ABDOMEN: Visualized portions are unremarkable where visualized. IMPRESSION: Stable size of left thyroid mass. Stable size of the bilateral pulmonary nodules, less than 5 millimeters in size. No new findings. RADIATION DOSE DELIVERED: 973.28mGy.cm Total DLP DATA REPOSITORY: All CT scans at this facility are submitted to the National Radiology Data Registry (NRDR) Dose Index Registry (DIR) with the [employer] (ACR). RADIATION OPTIMIZATION: All CT scans at this facility use at least one of these dose optimization te chniques: automated exposure control; mA and/or kV adjustment per patient size (includes targeted exa ms where dose is matched to clinical indication); or iterative reconstruction.
[2024-10-10] MEDS: Omnipaque 350 MG/ML 100 ML BTL IJ (08:31)
[2024-10-10] MEDS: Normal Saline - Diluent 50 ML VIAL IJ (08:32)
== END 2024-10-10 01:37 ==
LOC: DI 01:17
PROVIDERS: PCP Family Medicine; Visit Provider Nurse Practitioner Family
DX: C73 Malignant neoplasm of thyroid gland (principal); C78.01 Secondary malignant neoplasm of right lung; C78.02 Secondary malignant neoplasm of left lung
CPT/HCPCS: 70491; 71260; J3490

== ENCOUNTER 2024-10-17 02:03 | Outpatient (CLI) | payer MEDICAID, SELFPAY ==
[2024-10-17 07:27] LABS: Abs Immature Grans 0.06 10^3/uL (0.0-0.06); Absolute Basophil Count 0.07 10^3/uL (0.0-0.2); Absolute Monocyte Count 0.72 10^3/uL (0.1-0.8); Absolute Neutrophil Count 7.41 10^3/uL (1.2-6.7); Basophils % 0.7 %; Eosinophils % 1.9 %; HCT 52.3 % (40.0-50.0); Immature Grans % 0.6 %; Lymphocytes % 18.3 %; MCH 29.2 pg (27.0-33.0); MCHC 32.5 % (32.0-36.0); MCV 90 fL (80-95); MPV 8.9 fL (8.0-11.0); Monocytes % 6.9 %; Neutrophils % 71.6 %; Platelet Count 299 10^3/uL (130-400); RBC 5.82 10^6/uL (4.36-5.78); RDW 13.9 % (11.8-14.1); RDW-SD 45.4 fL; WBC 10.36 10^3/uL (4.4-10.8)
[2024-10-17 07:31] LABS: Bilirubin Negative (Negative); Blood Negative (Negative); Clarity Clear (Clear); Glucose Negative (Negative); Ketones Negative (Negative); Leukocyte Esterase Negative (Negative); Nitrite Negative (Negative); Specific Gravity 1.025 (1.005-1.025); pH 5.5 (5-8)
[2024-10-17 07:54] LABS: ALT 38 U/L (16-63); AST 21 U/L (15-37); Alkaline Phosphatase 109 U/L (46-116); Anion Gap 10.1 mmol/L (3-11); BUN 18 mg/dL (7-18); CO2 28.9 mmol/L (21.0-32.0); Calcium 10.2 mg/dL (8.5-10.1); Chloride 100 mmol/L (98-107); Estimated GFR 89.44 (mL/min/1.73m2); Glucose 147 mg/dL (74-106); Magnesium 2.3 mg/dL (1.8-2.4); Potassium 4.5 mmol/L (3.5-5.1); Sodium 139 mmol/L (136-145); TSH 3.31 uIU/mL (0.36-3.74); Total Protein 9.1 g/dL (6.4-8.2)
[2024-10-17 18:12] LABS: T4, Free 1.2 ng/dL (0.8-2.2)
== END 2024-10-17 02:04 | disposition home or self-care (01) ==
PROVIDERS: PCP Family Medicine; Visit Provider Internal Medicine Medical Oncology
DX: C73 Malignant neoplasm of thyroid gland (principal); C78.01 Secondary malignant neoplasm of right lung; C78.02 Secondary malignant neoplasm of left lung; Z79.899 Other long term (current) drug therapy
CPT/HCPCS: 36415; 80053; 81003; 83735; 84439; 84443; 85025

== ENCOUNTER 2024-11-07 02:43 | Outpatient (CLI) | payer MEDICAID, SELFPAY ==
[2024-11-07 07:24] LABS: Abs Immature Grans 0.04 10^3/uL (0.0-0.06); Absolute Basophil Count 0.08 10^3/uL (0.0-0.2); Absolute Eosinophil Count 0.24 10^3/uL (0.0-0.7); Absolute Lymphocyte Count 2.25 10^3/uL (1.2-3.4); Absolute Monocyte Count 0.73 10^3/uL (0.1-0.8); Absolute Neutrophil Count 7.24 10^3/uL (1.2-6.7); Basophils % 0.8 %; Eosinophils % 2.3 %; HCT 52.1 % (40.0-50.0); HGB 16.7 g/dL (13.5-17.5); Immature Grans % 0.4 %; Lymphocytes % 21.3 %; MCH 28.3 pg (27.0-33.0); MCHC 32.1 % (32.0-36.0); MCV 88 fL (80-95); MPV 8.4 fL (8.0-11.0); Monocytes % 6.9 %; Neutrophils % 68.3 %; Platelet Count 267 10^3/uL (130-400); RBC 5.91 10^6/uL (4.36-5.78); RDW 13.8 % (11.8-14.1); WBC 10.58 10^3/uL (4.4-10.8)
[2024-11-07 07:37] LABS: Bilirubin Negative (Negative); Blood Negative (Negative); Clarity Clear (Clear); Glucose Negative (Negative); Ketones Negative (Negative); Leukocyte Esterase Negative (Negative); Nitrite Negative (Negative); Urobilinogen 0.2 mg/dL (Up to 0.2)
[2024-11-07 07:53] LABS: ALT 31 U/L (16-63); AST 18 U/L (15-37); Albumin 3.6 g/dL (3.4-5.0); Alkaline Phosphatase 91 U/L (46-116); Anion Gap 9.3 mmol/L (3-11); BUN 18 mg/dL (7-18); Bilirubin, Total 0.5 mg/dL (0.2-1.0); CO2 26.7 mmol/L (21.0-32.0); Calcium 9.8 mg/dL (8.5-10.1); Chloride 102 mmol/L (98-107); Estimated GFR 89.44 (mL/min/1.73m2); Glucose 129 mg/dL (74-106); Magnesium 2.1 mg/dL; Potassium 4.7 mmol/L (3.5-5.1); Sodium 138 mmol/L (136-145); TSH 2.52 uIU/mL (0.36-3.74); Total Protein 8.1 g/dL (6.4-8.2)
[2024-11-07 19:21] LABS: T4, Free 1.1 ng/dL (0.8-2.2)
== END 2024-11-07 02:44 | disposition home or self-care (01) ==
LOC: LBO 02:43
PROVIDERS: PCP Family Medicine; Visit Provider Internal Medicine Medical Oncology
DX: C73 Malignant neoplasm of thyroid gland (principal); C78.01 Secondary malignant neoplasm of right lung; C78.02 Secondary malignant neoplasm of left lung; Z79.899 Other long term (current) drug therapy
CPT/HCPCS: 36415; 80053; 81003; 83735; 84439; 84443; 85025

== ENCOUNTER 2024-11-10 22:06 | Outpatient (REF) | payer MEDICAID, SELFPAY ==
[2024-11-10 22:22] LABS: COMMENT (LAB VIEW ONLY) 77.71 mg/dL; Microalb ug/mg Crea 81.8 ug/mg Cr
== END 2024-11-10 22:07 | disposition home or self-care (01) ==
LOC: LBN 22:06
PROVIDERS: PCP Family Medicine; Visit Provider Family Medicine
DX: E11.9 Type 2 diabetes mellitus without complications (principal); F32.9 Major depressive disorder, single episode, unspecified; C73 Malignant neoplasm of thyroid gland
CPT/HCPCS: 82043; 82570

== ENCOUNTER 2024-11-28 03:10 | Outpatient (CLI) | payer MEDICAID, SELFPAY ==
[2024-11-28 07:28] LABS: Abs Immature Grans 0.03 10^3/uL (0.0-0.06); Absolute Basophil Count 0.07 10^3/uL (0.0-0.2); Absolute Eosinophil Count 0.17 10^3/uL (0.0-0.7); Absolute Lymphocyte Count 2.01 10^3/uL (1.2-3.4); Absolute Monocyte Count 0.64 10^3/uL (0.1-0.8); Absolute Neutrophil Count 7.16 10^3/uL (1.2-6.7); Basophils % 0.7 %; Eosinophils % 1.7 %; HCT 48.8 % (40.0-50.0); Immature Grans % 0.3 %; Lymphocytes % 19.9 %; MCH 28.8 pg (27.0-33.0); MCHC 32.8 % (32.0-36.0); MCV 88 fL (80-95); MPV 8.5 fL (8.0-11.0); Monocytes % 6.3 %; Neutrophils % 71.1 %; Platelet Count 244 10^3/uL (130-400); RBC 5.56 10^6/uL (4.36-5.78); RDW-SD 45.1 fL; WBC 10.08 10^3/uL (4.4-10.8)
[2024-11-28 07:30] LABS: Bilirubin Negative (Negative); Blood Trace-intact (Negative); Clarity Clear (Clear); Glucose Negative (Negative); Ketones Negative (Negative); Leukocyte Esterase Negative (Negative); Nitrite Negative (Negative)
[2024-11-28 07:59] LABS: ALT 33 U/L (16-63); AST 19 U/L (15-37); Albumin 3.4 g/dL (3.4-5.0); Alkaline Phosphatase 84 U/L (46-116); BUN 12 mg/dL (7-18); Bilirubin, Total 0.6 mg/dL (0.2-1.0); CREATININE 0.9 mg/dL (0.70-1.30); Calcium 9.5 mg/dL (8.5-10.1); Chloride 102 mmol/L (98-107); Estimated GFR 101.49 (mL/min/1.73m2); FREE T4 0.83 ng/dL (0.76-1.46); Glucose 130 mg/dL (74-106); Potassium 4.4 mmol/L (3.5-5.1); Sodium 138 mmol/L (136-145); TSH 5.19 uIU/mL (0.36-3.74); Total Protein 7.7 g/dL (6.4-8.2)
== END 2024-11-28 03:11 | disposition home or self-care (01) ==
LOC: LBO 03:10
PROVIDERS: PCP Family Medicine; Visit Provider Internal Medicine Medical Oncology
DX: C73 Malignant neoplasm of thyroid gland (principal); C78.01 Secondary malignant neoplasm of right lung; C78.02 Secondary malignant neoplasm of left lung; Z79.899 Other long term (current) drug therapy
CPT/HCPCS: 36415; 80053; 81003; 83735; 84439; 84443; 85025

== ENCOUNTER 2024-12-13 00:11 | Outpatient (CLI) | payer MEDICAID, SELFPAY ==
--- NOTE | 2024-12-13 | DI.CT_ITS ---
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 Computer aided detection (CAD) was utilized. CONTRAST MATERIAL: Intravenous: Omnipaque 350 Contrast volume:100 ml Oral: no COMPARISON: CT CT NECK CHEST W from 04/24/[address] NECK CHEST W from 10/10/2024 FINDINGS: Neck: Parotids/submandibular: Thyroid gland: Right lobe is normal. There is a stable low-density nodule in the left lobe Lymphadenopathy: There are scattered lymph nodes seen along the level one to level three all measuri ng less than 8 mm in short axis diameter which are physiologic in nature. Carotids/Jugular: Within normal limits. Soft tissues: The floor the mouth is unremarkable. The epiglottis and vocal cords are within normal limits. Bones: Degenerative changes. No fracture. A hemangioma is again noted in the C6 vertebral body. St able scattered small bony lucencies in the cervical spine. Chest: Tracheobronchial tree: Patent where visualized. Mediastinum and Nimco: No dominant adenopathy or fluid collection. Pulmonary parenchyma: Stable small pulmonary nodules, 1 in the anterior left upper lobe in the other in the posterior left upper lobe. Three nodules noted at the superior segment of the right lower lob e. Stable peripheral nodule at the right lung base. Pleura: No effusion or pneumothorax. Heart/Aorta: Thoracic aorta non-dilated. The heart is not dilated. No coronary artery calcifications are seen. Pulmonary arteries: No evidence of emboli. Bones: No fracture. Stable hemangioma and T7. Degenerative changes with prominent endplate osteophy elvia. ABDOMEN: Artifact related to patient arm position. No acute findings. IMPRESSION: Neck CT: Stable thyroid nodule. Stable tiny bony lucencies. No adenopathy. Chest CT: Stable small bilateral pulmonary nodules, 5 millimeters or less in size. No adenopathy. RADIATION DOSE DELIVERED: 1,113.18mGy.cm Total DLP DATA REPOSITORY: All CT scans at this facility are submitted to the National Radiology Data Registry (NRDR) Dose Index Registry (DIR) with the [employer] ([employer]). RADIATION OPTIMIZATION: All CT scans at this facility use at least one of these dose optimization te chniques: automated exposure control; mA and/or kV adjustment per patient size (includes targeted exa ms where dose is matched to clinical indication); or iterative reconstruction.
[2024-12-13] MEDS: Omnipaque 350 MG/ML 100 ML BTL IJ (12:31)
[2024-12-13] MEDS: Normal Saline - Diluent 50 ML VIAL IJ (12:34)
== END 2024-12-13 00:31 ==
LOC: DI 00:11
PROVIDERS: PCP Family Medicine; Visit Provider Nurse Practitioner Family
DX: C73 Malignant neoplasm of thyroid gland (principal); C78.02 Secondary malignant neoplasm of left lung; C78.01 Secondary malignant neoplasm of right lung; Z79.899 Other long term (current) drug therapy
CPT/HCPCS: 70491; 71260; J3490

== ENCOUNTER 2024-12-19 07:14 | Outpatient (CLI) | payer MEDICAID, SELFPAY ==
[2024-12-19 07:24] LABS: Bilirubin Negative (Negative); Blood Negative (Negative); Clarity Clear (Clear); Glucose Negative (Negative); Ketones Negative (Negative); Leukocyte Esterase Negative (Negative); Nitrite Negative (Negative); Urobilinogen 0.2 mg/dL (Up to 0.2); pH 6.5 (5-8)
[2024-12-19 07:26] LABS: Abs Immature Grans 0.03 10^3/uL (0.0-0.06); Absolute Basophil Count 0.06 10^3/uL (0.0-0.2); Absolute Eosinophil Count 0.18 10^3/uL (0.0-0.7); Absolute Lymphocyte Count 1.94 10^3/uL (1.2-3.4); Absolute Monocyte Count 0.53 10^3/uL (0.1-0.8); Absolute Neutrophil Count 5.62 10^3/uL (1.2-6.7); Basophils % 0.7 %; Eosinophils % 2.2 %; HCT 52.3 % (40.0-50.0); Immature Grans % 0.4 %; Lymphocytes % 23.2 %; MCH 28.8 pg (27.0-33.0); MCHC 32.5 % (32.0-36.0); MCV 89 fL (80-95); MPV 8.6 fL (8.0-11.0); Monocytes % 6.3 %; Neutrophils % 67.2 %; Platelet Count 261 10^3/uL (130-400); RBC 5.91 10^6/uL (4.36-5.78); RDW 14.4 % (11.8-14.1); RDW-SD 46.6 fL; WBC 8.36 10^3/uL (4.4-10.8)
[2024-12-19 07:51] LABS: ALT 28 U/L (16-63); AST 21 U/L (15-37); Albumin 3.8 g/dL (3.4-5.0); Alkaline Phosphatase 90 U/L (46-116); Anion Gap 7.3 mmol/L (3-11); BUN 13 mg/dL (7-18); CO2 26.7 mmol/L (21.0-32.0); CREATININE 1.1 mg/dL (0.70-1.30); Calcium 9.5 mg/dL (8.5-10.1); Chloride 102 mmol/L (98-107); Estimated GFR 79.77 (mL/min/1.73m2); FREE T4 0.94 ng/dL (0.76-1.46); Glucose 133 mg/dL (74-106); Magnesium 2.1 mg/dL (1.8-2.4); Potassium 4.2 mmol/L (3.5-5.1); Sodium 136 mmol/L (136-145); Total Protein 7.9 g/dL (6.4-8.2)
== END 2024-12-19 07:15 | disposition home or self-care (01) ==
LOC: LBO 07:14
PROVIDERS: PCP Family Medicine; Visit Provider Internal Medicine Medical Oncology
DX: C73 Malignant neoplasm of thyroid gland (principal); C78.01 Secondary malignant neoplasm of right lung; C78.02 Secondary malignant neoplasm of left lung; Z79.899 Other long term (current) drug therapy
CPT/HCPCS: 36415; 80053; 81003; 83735; 84439; 84443; 85025

== ENCOUNTER 2025-01-10 02:21 | Outpatient (CLI) | payer MEDICAID, SELFPAY ==
[2025-01-10 07:24] LABS: Abs Immature Grans 0.06 10^3/uL (0.0-0.06); Absolute Basophil Count 0.09 10^3/uL (0.0-0.2); Absolute Eosinophil Count 0.18 10^3/uL (0.0-0.7); Absolute Lymphocyte Count 2.56 10^3/uL (1.2-3.4); Absolute Monocyte Count 0.69 10^3/uL (0.1-0.8); Basophils % 0.8 %; Eosinophils % 1.7 %; HCT 50.3 % (40.0-50.0); HGB 16.3 g/dL (13.5-17.5); Immature Grans % 0.6 %; Lymphocytes % 23.6 %; MCH 28.3 pg (27.0-33.0); MCHC 32.4 % (32.0-36.0); MCV 87 fL (80-95); MPV 8.6 fL (8.0-11.0); Monocytes % 6.4 %; Neutrophils % 66.9 %; Platelet Count 284 10^3/uL (130-400); RBC 5.76 10^6/uL (4.36-5.78); RDW 14.8 % (11.8-14.1); RDW-SD 46.8 fL; WBC 10.84 10^3/uL (4.4-10.8)
[2025-01-10 07:26] LABS: Absolute Neutrophil Count 7.25 10^3/uL (1.2-6.7)
[2025-01-10 07:28] LABS: Bilirubin Negative (Negative); Blood Negative (Negative); Clarity Clear (Clear); Glucose Negative (Negative); Ketones Negative (Negative); Leukocyte Esterase Negative (Negative); Nitrite Negative (Negative); Urobilinogen 0.2 mg/dL (Up to 0.2); pH 5.5 (5-8)
[2025-01-10 07:46] LABS: ALT 35 U/L (16-63); AST 21 U/L (15-37); Albumin 3.6 g/dL (3.4-5.0); Alkaline Phosphatase 95 U/L (46-116); Anion Gap 10.9 mmol/L (3-11); BUN 28 mg/dL (7-18); Bilirubin, Total 0.7 mg/dL (0.2-1.0); CO2 23.1 mmol/L (21.0-32.0); Calcium 9.3 mg/dL (8.5-10.1); Chloride 101 mmol/L (98-107); Estimated GFR 89.44 (mL/min/1.73m2); FREE T4 0.89 ng/dL (0.76-1.46); Glucose 143 mg/dL (74-106); Magnesium 2.1 mg/dL (1.8-2.4); Potassium 4.3 mmol/L (3.5-5.1); Sodium 135 mmol/L (136-145); TSH 3.69 uIU/mL (0.36-3.74); Total Protein 8.1 g/dL (6.4-8.2)
== END 2025-01-10 02:22 | disposition home or self-care (01) ==
LOC: LBO 02:21
PROVIDERS: PCP Family Medicine; Visit Provider Internal Medicine Medical Oncology
DX: C73 Malignant neoplasm of thyroid gland (principal); C78.01 Secondary malignant neoplasm of right lung; C78.02 Secondary malignant neoplasm of left lung; Z79.899 Other long term (current) drug therapy
CPT/HCPCS: 36415; 80053; 81003; 83735; 84439; 84443; 85025

== ENCOUNTER 2025-01-30 00:45 | Outpatient (CLI) | payer MEDICAID, SELFPAY ==
[2025-01-30 07:21] LABS: Abs Immature Grans 0.04 10^3/uL (0.0-0.06); Absolute Basophil Count 0.06 10^3/uL (0.0-0.2); Absolute Eosinophil Count 0.23 10^3/uL (0.0-0.7); Absolute Monocyte Count 0.64 10^3/uL (0.1-0.8); Basophils % 0.6 %; Eosinophils % 2.5 %; HCT 48.7 % (40.0-50.0); Immature Grans % 0.4 %; Lymphocytes % 24.8 %; MCH 28.7 pg (27.0-33.0); MCHC 32.9 % (32.0-36.0); MCV 87 fL (80-95); MPV 8.7 fL (8.0-11.0); Monocytes % 6.9 %; Neutrophils % 64.8 %; Platelet Count 275 10^3/uL (130-400); RBC 5.58 10^6/uL (4.36-5.78); RDW 14.6 % (11.8-14.1); RDW-SD 46.1 fL; WBC 9.27 10^3/uL (4.4-10.8)
[2025-01-30 07:22] LABS: Bilirubin Negative (Negative); Blood Trace-intact (Negative); Clarity Clear (Clear); Glucose Negative (Negative); Ketones Negative (Negative); Leukocyte Esterase Negative (Negative); Nitrite Negative (Negative); Urobilinogen 0.2 mg/dL (Up to 0.2); pH 6.5 (5-8)
[2025-01-30 07:55] LABS: ALT 38 U/L (16-63); AST 18 U/L (15-37); Albumin 3.7 g/dL (3.4-5.0); Alkaline Phosphatase 97 U/L (46-116); Anion Gap 9.5 mmol/L (3-11); BUN 12 mg/dL (7-18); Bilirubin, Total 0.9 mg/dL (0.2-1.0); CO2 28.5 mmol/L (21.0-32.0); Calcium 9.5 mg/dL (8.5-10.1); Chloride 99 mmol/L (98-107); Estimated GFR 89.44 (mL/min/1.73m2); Glucose 131 mg/dL (74-106); Potassium 4.6 mmol/L (3.5-5.1); Sodium 137 mmol/L (136-145); TSH 3.28 uIU/mL (0.36-3.74); Total Protein 8.1 g/dL (6.4-8.2)
[2025-01-30 08:13] LABS: FREE T4 0.95 ng/dL (0.76-1.46)
== END 2025-01-30 00:46 | disposition home or self-care (01) ==
LOC: LBO 00:45
PROVIDERS: PCP Family Medicine; Visit Provider Internal Medicine Medical Oncology
DX: C73 Malignant neoplasm of thyroid gland (principal); C78.01 Secondary malignant neoplasm of right lung; C78.02 Secondary malignant neoplasm of left lung; Z79.899 Other long term (current) drug therapy
CPT/HCPCS: 36415; 80053; 81003; 83735; 84439; 84443; 85025

== ENCOUNTER 2025-02-14 13:02 | Outpatient (CLI) | payer MEDICAID, SELFPAY ==
--- NOTE | 2025-02-14 | DI.CT_ITS ---
Exam(s) CT NECK CHEST W EXAM: CT NECK CHEST W CLINICAL HISTORY: THYROID CANCER C73 SECONDARY BOTH LUNGS, ANAPLASTIC THYROID CANCER ON TECHNIQUE: Imaging Protocol: Axial computed tomography images with coronal and sagittal reformatted images were created and reviewed. Computer aided detection (CAD) was utilized. CONTRAST MATERIAL: Intravenous: Omnipaque 350 Contrast volume:100 ml Oral: / no COMPARISON: CT CT NECK CHEST W from 12/13/2024 FINDINGS: Neck: Parotids/submandibular: Normal. Thyroid gland: Mild interval decrease in size of left thyroid nodule measuring 3.2 x 2.7 cm compared with 3.7 x 3.3 on the prior exam. Lymphadenopathy: There are scattered lymph nodes seen along the level one to level three all measuring less than 8 mm in short axis diameter which are physiologic in nature. Carotids/Jugular: Within normal limits. Soft tissues: The floor the mouth is unremarkable. The epiglottis and vocal cords are within normal limits. Bones: No fracture. Stable appearance of multiple small bony lytic lesions. Hemangioma again noted in C6. The visualized portions of the brain are unremarkable. Chest: Tracheobronchial tree: Patent where visualized. Mediastinum and Nimco: No dominant adenopathy or fluid collection. Pulmonary parenchyma: Stable 4 millimeter nodule in the anteromedial left upper lobe. Stable 3 x 5 millimeters nodule in the posterior left upper lobe. Stable 3 millimeter nodule posterior inferior right upper lobe. Stable 5 millimeter nodule superior segment right lower lobe. Stable 5 millimeter nodule periphery of the lateral right lower lobe. No consolidation or dominant measurable mass. Pleura: No effusion or pneumothorax. Heart/Aorta: Thoracic aorta non-dilated. The heart is not dilated. No coronary artery calcifications are seen. Pulmonary arteries: No evidence of emboli. Bones: No fracture. No stable hemangioma in the T7 vertebral body. Flowing endplate osteophytes. Upper ABDOMEN: Unremarkable. IMPRESSION: Interval decrease in size of left thyroid nodule. Stable size of multiple small pulmonary nodules measuring 5 millimeters or less in both lungs. No new findings. No adenopathy in the neck or chest. RADIATION DOSE DELIVERED: 1,112mGy.cm Total DLP DATA REPOSITORY: All CT scans at this facility are submitted to the National Radiology Data Registry (NRDR) Dose Index Registry (DIR) with the [employer] (ACR). RADIATION OPTIMIZATION: All CT scans at this facility use at least one of these dose optimization techniques: automated exposure control; mA and/or kV adjustment per patient size (includes targeted exams where dose is matched to clinical indication); or iterative reconstruction.
[2025-02-14] MEDS: Normal Saline - Diluent 50 ML VIAL IJ (13:21)
[2025-02-14] MEDS: Omnipaque 350 MG/ML 500 ML BTL-Imaging package 100 ML IJ (13:22)
== END 2025-02-14 13:22 ==
PROVIDERS: PCP Family Medicine; Visit Provider Internal Medicine Medical Oncology
DX: C73 Malignant neoplasm of thyroid gland (principal); R91.8 Other nonspecific abnormal finding of lung field
CPT/HCPCS: 70491; 71260

== ENCOUNTER 2025-02-20 03:38 | Outpatient (CLI) | payer MEDICAID, SELFPAY ==
[2025-02-20 07:15] LABS: Abs Immature Grans 0.05 10^3/uL (0.0-0.06); HCT 50.3 % (40.0-50.0); HGB 16.4 g/dL (13.5-17.5); Immature Grans % 0.5 %; MCH 28.7 pg (27.0-33.0); MCHC 32.6 % (32.0-36.0); MCV 88 fL (80-95); MPV 8.7 fL (8.0-11.0); Platelet Count 258 10^3/uL (130-400); RBC 5.71 10^6/uL (4.36-5.78); RDW 14.6 % (11.8-14.1); RDW-SD 46.4 fL; WBC 10.62 10^3/uL (4.4-10.8)
[2025-02-20 07:21] LABS: Glucose Negative (Negative)
[2025-02-20 07:39] LABS: ALT 31 U/L (16-63); AST 5 U/L (15-37); Albumin 3.7 g/dL (3.4-5.0); Alkaline Phosphatase 91 U/L (46-116); Anion Gap 7.2 mmol/L (3-11); BUN 16 mg/dL (7-18); Bilirubin, Total 0.6 mg/dL (0.2-1.0); CO2 29.8 mmol/L (21.0-32.0); Calcium 9.6 mg/dL (8.5-10.1); Chloride 99 mmol/L (98-107); Estimated GFR 101.49 (mL/min/1.73m2); Glucose 144 mg/dL (74-106); Magnesium 1.9 mg/dL (1.8-2.4); Potassium 4.9 mmol/L (3.5-5.1); Sodium 136 mmol/L (136-145); TSH 4.38 uIU/mL (0.36-3.74); Total Protein 8.1 g/dL (6.4-8.2)
== END 2025-02-20 03:39 | disposition home or self-care (01) ==
LOC: LBO 03:38
PROVIDERS: PCP Family Medicine; Visit Provider Internal Medicine Medical Oncology
DX: C73 Malignant neoplasm of thyroid gland (principal); C78.01 Secondary malignant neoplasm of right lung; C78.02 Secondary malignant neoplasm of left lung; Z79.899 Other long term (current) drug therapy
CPT/HCPCS: 36415; 80053; 81003; 83735; 84439; 84443; 85025

== ENCOUNTER 2025-03-13 03:53 | Outpatient (CLI) | payer MEDICAID, SELFPAY ==
[2025-03-13 13:08] LABS: Abs Immature Grans 0.05 10^3/uL (0.0-0.06); HCT 45.3 % (40.0-50.0); HGB 15.0 g/dL (13.5-17.5); Immature Grans % 0.5 %; MCH 29.2 pg (27.0-33.0); MCHC 33.1 % (32.0-36.0); MCV 88 fL (80-95); MPV 8.6 fL (8.0-11.0); Platelet Count 268 10^3/uL (130-400); RBC 5.13 10^6/uL (4.36-5.78); RDW 14.6 % (11.8-14.1); RDW-SD 46.7 fL; WBC 10.09 10^3/uL (4.4-10.8)
[2025-03-13 13:36] LABS: ALT 31 U/L (16-63); AST 16 U/L (15-37); Albumin 3.7 g/dL (3.4-5.0); Alkaline Phosphatase 86 U/L (46-116); Anion Gap 10.4 mmol/L (3-11); BUN 14 mg/dL (7-18); Bilirubin, Total 0.6 mg/dL (0.2-1.0); CO2 26.6 mmol/L (21.0-32.0); Calcium 9.2 mg/dL (8.5-10.1); Chloride 100 mmol/L (98-107); Estimated GFR 79.77 (mL/min/1.73m2); Glucose 182 mg/dL (74-106); Magnesium 2.1 mg/dL (1.8-2.4); Potassium 4.0 mmol/L (3.5-5.1); Sodium 137 mmol/L (136-145); TSH 1.79 uIU/mL (0.36-3.74); Total Protein 7.6 g/dL (6.4-8.2)
[2025-03-13 14:31] LABS: Glucose Negative (Negative)
== END 2025-03-13 03:54 | disposition home or self-care (01) ==
LOC: LBO 03:53
PROVIDERS: PCP Family Medicine; Visit Provider Internal Medicine Medical Oncology
DX: C73 Malignant neoplasm of thyroid gland (principal); C78.01 Secondary malignant neoplasm of right lung; C78.02 Secondary malignant neoplasm of left lung; Z79.899 Other long term (current) drug therapy
CPT/HCPCS: 36415; 80053; 81003; 83735; 84439; 84443; 85025

== ENCOUNTER 2025-04-03 04:16 | Outpatient (CLI) | payer MEDICAID, SELFPAY ==
[2025-04-03 12:52] LABS: Abs Immature Grans 0.04 10^3/uL (0.0-0.06); HCT 48.4 % (40.0-50.0); HGB 15.8 g/dL (13.5-17.5); Immature Grans % 0.4 %; MCH 28.3 pg (27.0-33.0); MCHC 32.6 % (32.0-36.0); MCV 87 fL (80-95); MPV 8.5 fL (8.0-11.0); Platelet Count 264 10^3/uL (130-400); RBC 5.58 10^6/uL (4.36-5.78); RDW 14.2 % (11.8-14.1); RDW-SD 45.5 fL; WBC 9.04 10^3/uL (4.4-10.8)
[2025-04-03 12:56] LABS: Glucose Negative (Negative)
[2025-04-03 13:17] LABS: ALT 27 U/L (16-63); AST 17 U/L (15-37); Albumin 3.7 g/dL (3.4-5.0); Alkaline Phosphatase 88 U/L (46-116); Anion Gap 9.9 mmol/L (3-11); BUN 13 mg/dL (7-18); Bilirubin, Total 0.9 mg/dL (0.2-1.0); CO2 25.1 mmol/L (21.0-32.0); Calcium 9.8 mg/dL (8.5-10.1); Chloride 100 mmol/L (98-107); Estimated GFR 89.44 (mL/min/1.73m2); Glucose 173 mg/dL (74-106); Magnesium 2.1 mg/dL (1.8-2.4); Potassium 4.3 mmol/L (3.5-5.1); Sodium 135 mmol/L (136-145); TSH 1.39 uIU/mL (0.36-3.74); Total Protein 7.7 g/dL (6.4-8.2)
== END 2025-04-03 04:17 | disposition home or self-care (01) ==
LOC: LBO 04:18
PROVIDERS: PCP Family Medicine; Visit Provider Internal Medicine Medical Oncology
DX: C73 Malignant neoplasm of thyroid gland (principal); C78.01 Secondary malignant neoplasm of right lung; C78.02 Secondary malignant neoplasm of left lung; Z79.899 Other long term (current) drug therapy
CPT/HCPCS: 36415; 80053; 81003; 83735; 84439; 84443; 85025

== ENCOUNTER 2025-04-25 08:19 | Outpatient (CLI) | payer MEDICAID, SELFPAY ==
[2025-04-25 09:40] LABS: Abs Immature Grans 0.04 10^3/uL (0.0-0.06); HCT 48.7 % (40.0-50.0); HGB 16.0 g/dL (13.5-17.5); Immature Grans % 0.5 %; MCH 28.3 pg (27.0-33.0); MCHC 32.9 % (32.0-36.0); MCV 86 fL (80-95); MPV 8.6 fL (8.0-11.0); Platelet Count 206 10^3/uL (130-400); RBC 5.66 10^6/uL (4.36-5.78); RDW 14.3 % (11.8-14.1); RDW-SD 45.1 fL; WBC 7.59 10^3/uL (4.4-10.8)
[2025-04-25 09:43] LABS: Glucose Negative (Negative)
[2025-04-25 10:04] LABS: ALT 29 U/L (16-63); AST 13 U/L (15-37); Albumin 3.5 g/dL (3.4-5.0); Alkaline Phosphatase 93 U/L (46-116); Anion Gap 8.8 mmol/L (3-11); BUN 9 mg/dL (7-18); Bilirubin, Total 1.0 mg/dL (0.2-1.0); CO2 27.2 mmol/L (21.0-32.0); Calcium 9.4 mg/dL (8.5-10.1); Chloride 99 mmol/L (98-107); Estimated GFR 89.44 (mL/min/1.73m2); Glucose 161 mg/dL (74-106); Magnesium 1.9 mg/dL (1.8-2.4); Potassium 4.2 mmol/L (3.5-5.1); Sodium 135 mmol/L (136-145); TSH 2.41 uIU/mL (0.36-3.74); Total Protein 7.7 g/dL (6.4-8.2)
== END 2025-04-25 08:20 | disposition home or self-care (01) ==
LOC: LBO 08:19
PROVIDERS: PCP Family Medicine; Visit Provider Internal Medicine Medical Oncology
DX: C73 Malignant neoplasm of thyroid gland (principal); C78.01 Secondary malignant neoplasm of right lung; C78.02 Secondary malignant neoplasm of left lung; Z79.899 Other long term (current) drug therapy
CPT/HCPCS: 36415; 80053; 81003; 83735; 84439; 84443; 85025

== ENCOUNTER 2025-05-08 07:21 | Outpatient (CLI) | payer MEDICAID, SELFPAY ==
[2025-05-08] MEDS: Normal Saline Flush 10 ML SYR IVP (14:52)
[2025-05-08] MEDS: Normal Saline - Diluent 50 ML VIAL IJ (14:52)
[2025-05-08] MEDS: Omnipaque 350 MG/ML 100 ML BTL IJ (14:53)
--- NOTE | 2025-05-08 14:53 | DI.CT_ITS ---
Exam(s) CT NECK CHEST W EXAM: CT NECK CHEST W CLINICAL HISTORY: THYROID CANCER C73 BILAT LUNG CANCER C78.01 C78.02METASTATIC ANAPLASTIC TECHNIQUE: Imaging Protocol: Axial computed tomography images with coronal and sagittal reformatted images were created and reviewed. Computer aided detection (CAD) was utilized. CONTRAST MATERIAL: Intravenous: Omnipaque 350Contrast volume:100 mL. COMPARISON: CT CT NECK CHEST W from 09/02/[address] NECK CHEST W from 10/10/[address] NECK CHEST W from 12/13/[address] NECK CHEST W from 02/14/2025 FINDINGS: Tracheobronchial tree: Patent where visualized. No evidence of bronchiectasis. Pulmonary parenchyma: There are no focal consolidations. There are stable nodules in the lung. There is a stable calcified granuloma on the right. No new pulmonary nodules are present. No architectural distortion. Mediastinum and Nimco: No dominant adenopathy or fluid collection. The esophagus is unremarkable. Thyroid gland: The left thyroid nodule measures 3.3 x 3.0 cm. This compares to 3.2 x 2.7 cm on the prior examination. Pleura: No effusion or pneumothorax. Heart: The heart is not dilated. No coronary artery calcifications are seen. No pericardial effusion. Aorta: Ascending thoracic aorta measures 4.5 x 4.2 cm. Mild atherosclerotic calcification is present. Pulmonary arteries: Due to the timing of the bolus, there is suboptimal opacification of the pulmonary arteries for evaluation of pulmonary emboli. Upper abdomen: Unremarkable. Lymph nodes: Within normal limits. Bones: Within normal limits for the patient's age. Soft tissues: Unremarkable. Visualized intracranial structures: Within normal limits. Orbits and orbital soft tissues: Within normal limits. Visualized paranasal sinuses: There is opacification of several ethmoid air cells. There is mucosal thickening in the right sphenoid sinus in the maxillary sinuses bilaterally. There is a small air-fluid level seen in the right maxillary sinus. Pharynx: Within normal limits. Larynx: Within normal limits. Retropharyngeal space: Within normal limits. Parotids/submandibular: Within normal limits. Lymphadenopathy: There is scattered lymph nodes seen along the level one to level three all measuring less than 8 mm in short axis diameter which are physiologic in nature. Trachea: Within normal limits. Bones: Within normal limits for the patient's age. Carotids/Jugular: Within normal limits. Soft tissues: Within normal limits. IMPRESSION: 1. Stable pulmonary nodules. There are no new pulmonary nodules. 2. No acute pulmonary process. 3. Left thyroid nodule which measures 3.3 x 3.0 cm. This compares to 3.2 x 2.7 cm on the prior examination. 4. There is no cervical or thoracic adenopathy. 5. Findings of chronic sinusitis. There is an air-fluid level seen in the right maxillary sinus which may represent an acute sinus disease. Please correlate clinically. RADIATION DOSE DELIVERED: 1,200.59mGy.cm Total DLP DATA REPOSITORY: All CT scans at this facility are submitted to the National Radiology Data Registry (NRDR) Dose Index Registry (DIR) with the [employer] ([employer]). RADIATION OPTIMIZATION: All CT scans at this facility use at least one of these dose optimization techniques: automated exposure control; mA and/or kV adjustment per patient size (includes targeted exams where dose is matched to clinical indication); or iterative reconstruction.
== END 2025-05-08 07:41 ==
LOC: DI 07:21
PROVIDERS: PCP Family Medicine; Visit Provider Nurse Practitioner Family
DX: C78.01 Secondary malignant neoplasm of right lung (principal); C73 Malignant neoplasm of thyroid gland
CPT/HCPCS: 70491; 71260; J3490

== ENCOUNTER 2025-05-15 04:11 | Outpatient (CLI) | payer MEDICAID, SELFPAY ==
[2025-05-15 10:56] LABS: Abs Immature Grans 0.02 10^3/uL (0.0-0.06); HCT 47.5 % (40.0-50.0); HGB 15.5 g/dL (13.5-17.5); Immature Grans % 0.2 %; MCH 28.1 pg (27.0-33.0); MCHC 32.6 % (32.0-36.0); MCV 86 fL (80-95); MPV 9.0 fL (8.0-11.0); Platelet Count 282 10^3/uL (130-400); RBC 5.52 10^6/uL (4.36-5.78); RDW 14.4 % (11.8-14.1); RDW-SD 44.3 fL; WBC 8.85 10^3/uL (4.4-10.8)
[2025-05-15 12:03] LABS: ALT 31 U/L (16-63); AST 16 U/L (15-37); Albumin 3.6 g/dL (3.4-5.0); Alkaline Phosphatase 88 U/L (46-116); Anion Gap 10.8 mmol/L (3-11); BUN 11 mg/dL (7-18); Bilirubin, Total 0.7 mg/dL (0.2-1.0); CO2 26.2 mmol/L (21.0-32.0); Calcium 9.4 mg/dL (8.5-10.1); Chloride 100 mmol/L (98-107); Estimated GFR 89.44 (mL/min/1.73m2); Glucose 164 mg/dL (74-106); Magnesium 2.3 mg/dL (1.8-2.4); Potassium 4.0 mmol/L (3.5-5.1); Sodium 137 mmol/L (136-145); TSH 2.81 uIU/mL (0.36-3.74); Total Protein 7.8 g/dL (6.4-8.2)
== END 2025-05-15 04:12 | disposition home or self-care (01) ==
PROVIDERS: PCP Family Medicine; Visit Provider Nurse Practitioner Family
DX: C73 Malignant neoplasm of thyroid gland (principal); Z79.899 Other long term (current) drug therapy
CPT/HCPCS: 36415; 80053; 83735; 84439; 84443; 85025

== ENCOUNTER 2025-06-05 03:50 | Outpatient (CLI) | payer MEDICAID, SELFPAY ==
[2025-06-05 12:49] LABS: Abs Immature Grans 0.03 10^3/uL (0.0-0.06); HCT 47.9 % (40.0-50.0); HGB 16.1 g/dL (13.5-17.5); Immature Grans % 0.3 %; MCH 29.0 pg (27.0-33.0); MCHC 33.6 % (32.0-36.0); MCV 86 fL (80-95); MPV 8.6 fL (8.0-11.0); Platelet Count 317 10^3/uL (130-400); RBC 5.56 10^6/uL (4.36-5.78); RDW 14.6 % (11.8-14.1); RDW-SD 45.6 fL; WBC 10.62 10^3/uL (4.4-10.8)
[2025-06-05 13:13] LABS: ALT 29 U/L (16-63); AST 16 U/L (15-37); Albumin 3.4 g/dL (3.4-5.0); Alkaline Phosphatase 99 U/L (46-116); Anion Gap 11.9 mmol/L (3-11); BUN 17 mg/dL (7-18); Bilirubin, Total 0.7 mg/dL (0.2-1.0); CO2 24.1 mmol/L (21.0-32.0); Calcium 9.4 mg/dL (8.5-10.1); Chloride 100 mmol/L (98-107); Estimated GFR 89.44 (mL/min/1.73m2); Glucose 162 mg/dL (74-106); Magnesium 2.2 mg/dL (1.8-2.4); Potassium 4.4 mmol/L (3.5-5.1); Sodium 136 mmol/L (136-145); TSH 2.34 uIU/mL (0.36-3.74); Total Protein 8.0 g/dL (6.4-8.2)
== END 2025-06-05 03:51 | disposition home or self-care (01) ==
PROVIDERS: PCP Family Medicine; Visit Provider Nurse Practitioner Family
DX: Z79.899 Other long term (current) drug therapy (principal); C73 Malignant neoplasm of thyroid gland
CPT/HCPCS: 36415; 80053; 83735; 84439; 84443; 85025

== ENCOUNTER 2025-06-26 03:30 | Outpatient (CLI) | payer MEDICAID, SELFPAY ==
[2025-06-26 12:02] LABS: Abs Immature Grans 0.05 10^3/uL (0.0-0.06); HCT 47.9 % (40.0-50.0); HGB 15.4 g/dL (13.5-17.5); Immature Grans % 0.5 %; MCH 27.7 pg (27.0-33.0); MCHC 32.2 % (32.0-36.0); MCV 86 fL (80-95); MPV 8.7 fL (8.0-11.0); Platelet Count 259 10^3/uL (130-400); RBC 5.56 10^6/uL (4.36-5.78); RDW 14.9 % (11.8-14.1); RDW-SD 46.6 fL; WBC 9.54 10^3/uL (4.4-10.8)
[2025-06-26 12:35] LABS: ALT 29 U/L (16-63); AST 14 U/L (15-37); Albumin 3.5 g/dL (3.4-5.0); Alkaline Phosphatase 92 U/L (46-116); Anion Gap 8.3 mmol/L (3-11); BUN 15 mg/dL (7-18); Bilirubin, Total 0.6 mg/dL (0.2-1.0); CO2 28.7 mmol/L (21.0-32.0); Calcium 8.7 mg/dL (8.5-10.1); Chloride 99 mmol/L (98-107); Glucose 174 mg/dL (74-106); Magnesium 2.0 mg/dL (1.8-2.4); Potassium 4.3 mmol/L (3.5-5.1); Sodium 136 mmol/L (136-145); TSH 1.89 uIU/mL (0.36-3.74); Total Protein 7.8 g/dL (6.4-8.2)
== END 2025-06-26 03:31 | disposition home or self-care (01) ==
LOC: LBO 03:30
PROVIDERS: PCP Family Medicine; Visit Provider Nurse Practitioner Family
DX: C73 Malignant neoplasm of thyroid gland (principal); Z79.899 Other long term (current) drug therapy
CPT/HCPCS: 36415; 80053; 83735; 84439; 84443; 85025

== ENCOUNTER 2025-07-17 13:20 | Outpatient (CLI) | payer MEDICAID, SELFPAY ==
[2025-07-17 12:48] LABS: Abs Immature Grans 0.04 10^3/uL (0.0-0.06); HCT 48.5 % (40.0-50.0); HGB 15.6 g/dL (13.5-17.5); Immature Grans % 0.4 %; MCH 27.9 pg (27.0-33.0); MCHC 32.2 % (32.0-36.0); MCV 87 fL (80-95); MPV 8.9 fL (8.0-11.0); Platelet Count 264 10^3/uL (130-400); RBC 5.60 10^6/uL (4.36-5.78); RDW 15.0 % (11.8-14.1); RDW-SD 47.4 fL; WBC 10.67 10^3/uL (4.4-10.8)
[2025-07-17 13:13] LABS: Magnesium 1.8 mg/dL (1.6-2.6)
[2025-07-17 13:15] LABS: ALT 23 U/L (10-49); AST 17 U/L (<34); Albumin 4.3 g/dL (3.2-5.0); Alkaline Phosphatase 88 U/L (46-116); Anion Gap 10.2 mmol/L (3-11); BUN 13 mg/dL (9-23); Bilirubin, Total 0.70 mg/dL (0.2-1.2); CO2 28.4 mmol/L (20.0-31.0); Calcium 9.6 mg/dL (8.3-10.6); Chloride 99 mmol/L (98-107); Glucose 192 mg/dL (74-106); Potassium 4.3 mmol/L (3.5-5.1); Sodium 138 mmol/L (136-145); Total Protein 7.4 g/dL (5.7-8.2)
[2025-07-17 13:16] LABS: TSH 1.23 uIU/mL (0.55-4.78)
== END 2025-07-17 13:21 | disposition home or self-care (01) ==
LOC: LBO 13:22
PROVIDERS: Internal Medicine Medical Oncology; PCP Family Medicine; Visit Provider Nurse Practitioner Family
DX: C73 Malignant neoplasm of thyroid gland (principal); Z79.899 Other long term (current) drug therapy
CPT/HCPCS: 36415; 80053; 83735; 84439; 84443; 85025

== ENCOUNTER 2025-08-07 01:44 | Outpatient (CLI) | payer MEDICAID, SELFPAY ==
[2025-08-07 13:02] LABS: Abs Immature Grans 0.07 10^3/uL (0.0-0.06); HCT 48.0 % (40.0-50.0); HGB 15.7 g/dL (13.5-17.5); Immature Grans % 0.5 %; MCH 28.6 pg (27.0-33.0); MCHC 32.7 % (32.0-36.0); MCV 88 fL (80-95); MPV 8.5 fL (8.0-11.0); Platelet Count 338 10^3/uL (130-400); RBC 5.48 10^6/uL (4.36-5.78); RDW 15.0 % (11.8-14.1); RDW-SD 48.2 fL; WBC 12.75 10^3/uL (4.4-10.8)
[2025-08-07 13:03] LABS: Glucose Negative (Negative)
[2025-08-07 13:18] LABS: Magnesium 1.8 mg/dL (1.6-2.6)
[2025-08-07 13:20] LABS: ALT 16 U/L (10-49); AST 15 U/L (<34); Albumin 4.8 g/dL (3.2-5.0); Alkaline Phosphatase 107 U/L (46-116); Anion Gap 10 mmol/L (3-11); BUN 23 mg/dL (9-23); Bilirubin, Total 0.6 mg/dL (0.2-1.2); CO2 29.5 mmol/L (20.0-31.0); Calcium 9.6 mg/dL (8.3-10.6); Chloride 98 mmol/L (98-107); Glucose 121 mg/dL (74-106); Potassium 4.2 mmol/L (3.5-5.1); Sodium 138 mmol/L (136-145); Total Protein 8.0 g/dL (5.7-8.2)
[2025-08-07 13:23] LABS: TSH 0.38 uIU/mL (0.55-4.78)
== END 2025-08-07 01:45 | disposition home or self-care (01) ==
LOC: LBO 01:45
PROVIDERS: PCP Family Medicine; Visit Provider Nurse Practitioner Family
DX: Z79.899 Other long term (current) drug therapy (principal); C73 Malignant neoplasm of thyroid gland; C78.01 Secondary malignant neoplasm of right lung; C78.02 Secondary malignant neoplasm of left lung
CPT/HCPCS: 36415; 80053; 81003; 83735; 84439; 84443; 85025